=== PATIENT | female | born 1985 | race Caucasian/White ===

== ENCOUNTER 2018-04-09 18:20 | Emergency (ER) | payer SELFPAY ==
[2018-04-09 20:03] LABS: Basophils # (Auto) 0.1 K/mm3 (0.0-0.1); Basophils % (Auto) 0.7 % (0.0-1.8); Eosinophils # (Auto) 0.2 K/mm3 (0.0-0.4); Eosinophils % (Auto) 2.4 % (0.0-4.3); Hematocrit 44.2 % (30.3-42.9); Hemoglobin 14.9 gm/dl (10.1-14.3); Lymphocytes # (Auto) 2.4 K/mm3 (1.2-5.4); Lymphocytes % (Auto) 24.7 % (13.4-35.0); Mean Corpuscular HGB Conc 34 % (30-34); Mean Corpuscular Hemoglobin 31 pg (28-32); Mean Corpuscular Volume 92 fl (79-97); Monocytes # (Auto) 0.6 K/mm3 (0.0-0.8); Monocytes % (Auto) 6.6 % (0.0-7.3); Platelet Count 263 K/mm3 (140-440); Red Blood Count 4.82 M/mm3 (3.65-5.03); Red Cell Distribution Width 13.4 % (13.2-15.2)
[2018-04-09 20:16] LABS: BUN/Creatinine Ratio 11; Blood Urea Nitrogen 8 mg/dL (7-17); Calcium 9.1 mg/dL (8.4-10.2); Hemolysis Index 17
[2018-04-09] MEDS ORDERED: ANTIVERT PO ONE (23:22)
[2018-04-09] MEDS ORDERED: ZOFRAN ODT PO ONE (23:22)
--- NOTE | 2018-04-09 23:28 | Emergency Department Report ---
ED Dizziness HPI - General Chief Complaint: Dizziness Stated Complaint: DIZZNESS Time Seen by Provider: 04/09/18 23:13 Source: patient Mode of arrival: Ambulatory Limitations: Language Barrier - History of Present Illness Initial Comments: 33-year-old female with past medical history of kidney stones presents and previous appendectomy presents to the hospital complaining of intermittent dizziness described as a spinning sensation for the past 3 days. Symptoms are intermittent and worse with head movement to the side, looking up or down, or other postural changes. Dizziness is associated with nausea but she denies vomiting. When she tries to read and dizziness occurs her vision is blurry and she has trouble focusing. Patient states she is supposed to wear reading glasses but she does not. Patient has chronic intermittent loose stools after by mouth intake but denies aristeo diarrhea. Patient has a mild headache this evening but thinks is secondary to not eating all day. She denies fever, unsteady gait, focal numbness, focal weakness, chest pain, shortness of breath, decreased hearing or tinnitus. - Related Data Home Medications Medication Instructions Recorded Confirmed Last Taken Ferrous Sulfate [Feosol] 325 mg PO QDAY 01/28/16 01/28/16 1 Week Ago ~01/21/16 valACYclovir [Valtrex] 500 mg PO QDAY 01/28/16 01/28/16 01/26/16 Previous Rx's Medication Instructions Recorded Last Taken Type Ibuprofen [Motrin 800 MG tab] 800 mg PO Q8HR PRN #30 tablet 01/28/16 Unknown Rx oxyCODONE /ACETAMINOPHEN [Percocet 2 tab PO Q4HR PRN #30 tablet 01/28/16 Unknown Rx 5/325] Ferrous Sulfate [Feosol 325 MG tab] 325 mg PO BID #60 tablet 01/29/16 Unknown Rx Meclizine [Antivert] 25 mg PO TID PRN #30 tablet 04/09/18 Unknown Rx Ondansetron [Zofran Odt] 4 mg PO Q8HR PRN #20 tab.rapdis 04/09/18 Unknown Rx Allergies Allergy/AdvReac Type Severity Reaction Status Date / Time ciprofloxacin [From Cipro] Allergy Rash Verified 08/28/15 21:11 ciprofloxacin HCl Allergy Rash Verified 08/28/15 21:11 [From Cipro] ED Review of Systems ROS: Stated complaint: DIZZNESS Other details as noted in HPI Comment: All other systems reviewed and negative ED Past Medical Hx - Past Medical History Previous Medical History?: Yes Hx Hypertension: No Hx Congestive Heart Failure: No Hx Diabetes: No Hx Deep Vein Thrombosis: No Hx Renal Disease: (kidney stones 2009) Hx Sickle Cell Disease: No Hx Seizures: No Hx Asthma: No Hx COPD: No Hx HIV: No - Surgical History Past Surgical History?: Yes Hx Appendectomy: Yes - Social History Smoking Status: Never Smoker - Medications Home Medications: Home Medications Medication Instructions Recorded Confirmed Last Taken Type Ferrous Sulfate [Feosol] 325 mg PO QDAY 01/28/16 01/28/16 1 Week Ago History ~01/21/16 Ibuprofen [Motrin 800 MG tab] 800 mg PO Q8HR PRN #30 tablet 01/28/16 Unknown Rx oxyCODONE /ACETAMINOPHEN [Percocet 2 tab PO Q4HR PRN #30 tablet 01/28/16 Unknown Rx 5/325] valACYclovir [Valtrex] 500 mg PO QDAY 01/28/16 01/28/16 01/26/16 History Ferrous Sulfate [Feosol 325 MG tab] 325 mg PO BID #60 tablet 01/29/16 Unknown Rx Meclizine [Antivert] 25 mg PO TID PRN #30 tablet 04/09/18 Unknown Rx Ondansetron [Zofran Odt] 4 mg PO Q8HR PRN #20 tab.rapdis 04/09/18 Unknown Rx ED Physical Exam - General Limitations: Language Barrier - Other Other exam information: General: No limitations, patient is alert in no acute distress Head exam: Atraumatic, normocephalic Eyes exam: Normal appearance, pupils equal reactive to light, extraocular movements intact. Patient dizzy with lateral gaze left greater than right. No significant nystagmus. VA Bilateral 20/20 L 20/25, R 20/25 ENT: Moist mucous membrane, normal oropharynx, bilateral TMs normal Neck exam: Normal inspection, full range of motion, no meningismus nontender Respiratory exam: Clear to auscultation bilateral, no wheezes, rales, crackles Cardiovascular: Normal rate and rhythm, normal heart sounds Abdomen: Soft, nondistended, and nontender, with normal bowel sounds, no rebound, or guarding Extremity: Full range of motion normal inspection no deformity Back: Normal Inspection, full range of motion, no tenderness Neurologic: Alert, oriented x3, cranial nerves intact, no motor or sensory deficit. NIHSS = 0 Psychiatric: normal affect, normal mood Skin: Warm, dry, intact ED Course Vital Signs 04/09/18 04/09/18 18:36 23:45 Temperature 98.3 F 98.2 F Pulse Rate 63 63 Respiratory 18 20 Rate Blood Pressure 113/74 Blood Pressure 113/66 [Left] O2 Sat by Pulse 96 100 Oximetry - Reevaluation(s) Reevaluation #1: 04/09/18 23:26 orthostatics, visual acuity, and meclizine administration pending ED Medical Decision Making - Lab Data Result diagrams: 04/09/18 19:45 04/09/18 19:45 Lab Results 04/09/18 04/09/18 04/09/18 Range/Units 19:45 19:45 19:45 WBC 9.7 (4.5-11.0) K/mm3 RBC 4.82 (3.65-5.03) M/mm3 Hgb 14.9 H (10.1-14.3) gm/dl Hct 44.2 H (30.3-42.9) % MCV 92 (79-97) fl MCH 31 (28-32) pg MCHC 34 (30-34) % RDW 13.4 (13.2-15.2) % Plt Count 263 (140-440) K/mm3 Lymph % (Auto) 24.7 (13.4-35.0) % Pratt % (Auto) 6.6 (0.0-7.3) % Eos % (Auto) 2.4 (0.0-4.3) % Baso % (Auto) 0.7 (0.0-1.8) % Lymph # 2.4 (1.2-5.4) K/mm3 Pratt # 0.6 (0.0-0.8) K/mm3 Eos # 0.2 (0.0-0.4) K/mm3 Baso # 0.1 (0.0-0.1) K/mm3 Seg Neutrophils % 65.6 (40.0-70.0) % Seg Neutrophils # 6.4 (1.8-7.7) K/mm3 Sodium 139 (137-145) mmol/L Potassium 4.0 (3.6-5.0) mmol/L Chloride 102.8 (98-107) mmol/L Carbon Dioxide 24 (22-30) mmol/L Anion Gap 16 mmol/L BUN 8 (7-17) mg/dL Creatinine 0.7 (0.7-1.2) mg/dL Estimated GFR > 60 ml/min BUN/Creatinine Ratio 11 % Glucose 96 (65-100) mg/dL Calcium 9.1 (8.4-10.2) mg/dL Magnesium (1.7-2.3) mg/dL Total Bilirubin (0.1-1.2) mg/dL Direct Bilirubin (0-0.2) mg/dL Indirect Bilirubin mg/dL AST (5-40) units/L ALT (7-56) units/L Alkaline Phosphatase (35-129) units/L Total Protein (6.3-8.2) g/dL Albumin (3.9-5) g/dL Albumin/Globulin Ratio % HCG, Qual Negative (Negative) 04/09/18 Range/Units 23:15 WBC (4.5-11.0) K/mm3 RBC (3.65-5.03) M/mm3 Hgb (10.1-14.3) gm/dl Hct (30.3-42.9) % MCV (79-97) fl MCH (28-32) pg MCHC (30-34) % RDW (13.2-15.2) % Plt Count (140-440) K/mm3 Lymph % (Auto) (13.4-35.0) % Pratt % (Auto) (0.0-7.3) % Eos % (Auto) (0.0-4.3) % Baso % (Auto) (0.0-1.8) % Lymph # (1.2-5.4) K/mm3 Pratt # (0.0-0.8) K/mm3 Eos # (0.0-0.4) K/mm3 Baso # (0.0-0.1) K/mm3 Seg Neutrophils % (40.0-70.0) % Seg Neutrophils # (1.8-7.7) K/mm3 Sodium (137-145) mmol/L Potassium (3.6-5.0) mmol/L Chloride (98-107) mmol/L Carbon Dioxide (22-30) mmol/L Anion Gap mmol/L BUN (7-17) mg/dL Creatinine (0.7-1.2) mg/dL Estimated GFR ml/min BUN/Creatinine Ratio % Glucose (65-100) mg/dL Calcium (8.4-10.2) mg/dL Magnesium 2.20 (1.7-2.3) mg/dL Total Bilirubin 0.30 (0.1-1.2) mg/dL Direct Bilirubin < 0.2 (0-0.2) mg/dL Indirect Bilirubin 0.1 mg/dL AST 20 (5-40) units/L ALT 19 (7-56) units/L Alkaline Phosphatase 89 (35-129) units/L Total Protein 7.0 (6.3-8.2) g/dL Albumin 4.2 (3.9-5) g/dL Albumin/Globulin Ratio 1.5 % HCG, Qual (Negative) - EKG Data -: EKG Interpreted by [facility] EKG shows normal: sinus rhythm, axis (qrs 20), QRS complexes (qrsd 90), ST-T waves (no lat t wave flat, no stemi) Rate: normal (74) - EKG Data When compared to previous EKG there are: previous EKG unavailable - Medical Decision Making vertigo sx labs normal orthostatics neg visual acuity normal improved with meclizine/zofran ENT and PMD f/u Encouraged - Differential Diagnosis vertigo, anemia and dehydration Critical Care Time: No Critical care attestation.: If time is entered above; I have spent that time in minutes in the direct care of this critically ill patient, excluding procedure time. ED Disposition Clinical Impression: Vertigo Disposition: DC-01 TO HOME OR SELFCARE Is pt being admited?: No Does the pt Need Aspirin: No Condition: Stable Instructions: Vertigo (ED) Additional Instructions: Follow-up with the primary care doctor and an ENT doctor. Take the medication as prescribed. Return if symptoms worsen as indicated by the discharge instructions. Prescriptions: Meclizine [Antivert] 25 mg PO TID PRN #30 tablet PRN Reason: Vertigo Ondansetron [Zofran Odt] 4 mg PO Q8HR PRN #20 tab.rapdis PRN Reason: Nausea And Vomiting Referrals: PRIMARY CAREMD [Primary Care Provider] - 3-5 Days KEMAL STOKES MD [Staff Physician] - 3-5 Days (ENT) MICHAEL WHITTAKER MD [Staff Physician] - 3-5 Days (ENT) Time of Disposition: 01:35 - Assessment Assessment Interval: Baseline - Level of Consciousness 1a. Level of Consciousness: alert - LOC Questions 1b. LOC Questions: answers correctly - LOC Command 1c. LOC Commands: performs tasks correctly - Best Gaze 2. Best Gaze: normal - Visual 3. Visual: no visual loss - Facial Palsy 4. Facial Palsy: normal symmetrical movement - Motor Arm 5b. Motor Arm Right: no drift 5a. Motor Arm Left: amputation - Motor Leg 6a. Motor Leg Left: no drift 6b. Motor Leg Right: no drift - Limb Ataxia 7. Limb Ataxia: absent - Sensory 8. Sensory: normal - Best Language 9. Best Language: no aphasia - Dysarthria 10. Dysarthria: normal - Extinction and Inattention 11. Extinction/Inattention: no abnormality
[2018-04-09 23:34] LABS: Alanine Aminotransferase 19 units/L (7-56); Albumin 4.2 g/dL (3.9-5)
[2018-04-09 23:35] LABS: Bilirubin,Direct < 0.2 mg/dL (0-0.2)
[2018-04-10 02:12] VITALS: BP 108/68
== END 2018-04-10 02:14 | disposition home or self-care (01) ==
LOC: ED 18:20
DX: R42 Dizziness and giddiness (principal); Z90.49 Acquired absence of other specified parts of digestive tract; Z88.1 Allergy status to other antibiotic agents
CPT/HCPCS: 36415; 80048; 80074; 83735; 84703; 85025; 93005; 93010; Q0162

== ENCOUNTER 2018-04-13 00:22 | Emergency (ER) | payer SELFPAY ==
[2018-04-13 04:38] LABS: HCG Qualitative,Urine Negative (Negative)
--- NOTE | 2018-04-13 04:56 | XRay Report ---
FINAL REPORT EXAM: XR FOREARM RT HISTORY: Laceration/ foreign body COMPARISONS: None. FINDINGS: AP and lateral views right forearm No radiodense foreign body, bone lesion, periosteal reaction, or fracture. No deformity or gross malalignment. Mild dorsal forearm soft tissue irregularity with overlying bandaging material is compatible with reported laceration. IMPRESSION: No radiodense foreign body or fracture.
[2018-04-13] MEDS ORDERED: MOTRIN PO ONE (05:54)
[2018-04-13] MEDS ORDERED: BOOSTRIX IM ONE ×2 (05:55→05:56)
[2018-04-13] MEDS ORDERED: HYDROGEN PEROXIDE ONE (05:56)
--- NOTE | 2018-04-13 06:32 | Emergency Department Report ---
ED Laceration HPI - HPI Chief Complaint: Wound/Laceration Stated Complaint: LACERATION TO RIGHT FOREARM Time Seen by Provider: 04/13/18 05:54 Other History: 33-year-old female comes in reporting a laceration to the right forearm approximately 8 PM on Sunday night. Patient reports she fell on a clock and cut from the face of the clot. Patient also reports that she put [place] antibiotic medication that was in a capsule she poured it on to her wound. Patient has an allergy to Cipro currently takes no medications on a daily basis has a past medical history of kidney stones and had her appendix taken out. ED Review of Systems ROS: Stated complaint: LACERATION TO RIGHT FOREARM Other details as noted in HPI Comment: All other systems reviewed and negative Skin: other (cut to right forearm) ED Past Medical Hx - Past Medical History Previous Medical History?: Yes Hx Hypertension: No Hx Congestive Heart Failure: No Hx Diabetes: No Hx Deep Vein Thrombosis: No Hx Renal Disease: (kidney stones 2009) Hx Sickle Cell Disease: No Hx Seizures: No Hx Kidney Stones: Yes Hx Asthma: No Hx COPD: No Hx HIV: No - Surgical History Hx Appendectomy: Yes - Social History Smoking Status: Never Smoker Substance Use Type: None - Medications Home Medications: Home Medications Medication Instructions Recorded Confirmed Last Taken Type Ferrous Sulfate [Feosol] 325 mg PO QDAY 01/28/16 01/28/16 1 Week Ago History ~01/21/16 oxyCODONE /ACETAMINOPHEN [Percocet 2 tab PO Q4HR PRN #30 tablet 01/28/16 Unknown Rx 5/325] valACYclovir [Valtrex] 500 mg PO QDAY 01/28/16 01/28/16 01/26/16 History Ferrous Sulfate [Feosol 325 MG tab] 325 mg PO BID #60 tablet 01/29/16 Unknown Rx Meclizine [Antivert] 25 mg PO TID PRN #30 tablet 04/09/18 Unknown Rx Ondansetron [Zofran Odt] 4 mg PO Q8HR PRN #20 tab.rapdis 04/09/18 Unknown Rx Cephalexin [Keflex] 500 mg PO BID #14 capsule 04/13/18 Unknown Rx Ibuprofen [Motrin 800 MG tab] 800 mg PO Q8HR PRN #30 tablet 04/13/18 Unknown Rx Laceration Physical Exam - Exam General: Vital signs noted. No distress. Alert and acting appropriately. It appears that the wound has started to heal with the antibiotics substance that the patient had placed on the wound. There is no surrounding erythematous mild tenderness to palpate non-edematous. Scab is starting to form. No discharge appreciated. Wound Length (cm): 2 Laceration Exam: Yes Normal Distal CMS, No Foreign Body, No Exposed Tendon, Vessel, or Nerve, No Tendon Injury ED Course Vital Signs 04/13/18 04/13/18 00:20 02:13 Temperature 98.8 F 98.8 F Pulse Rate 89 88 Respiratory 18 16 Rate Blood Pressure 122/86 122/86 O2 Sat by Pulse 95 98 Oximetry ED Medical Decision Making - Radiology Data Radiology results: report reviewed, image reviewed FINAL REPORT EXAM: XR FOREARM RT HISTORY: Laceration/ foreign body COMPARISONS: None. FINDINGS: AP and lateral views right forearm No radiodense foreign body, bone lesion, periosteal reaction, or fracture. No deformity or gross malalignment. Mild dorsal forearm soft tissue irregularity with overlying bandaging material is compatible with reported laceration. IMPRESSION: No radiodense foreign body or fracture. Transcribed By: MB Dictated By: MARIBELL NAIK MD Electronically Authenticated By: MARIBELL NAIK MD Signed Date/Time: 04/13/18 489 - Medical Decision Making Patient has been evaluated by this provider fast track. Since patient is placed that antibiotic pill substance on top of the wound were not able to get the substance off to take a better look at the wound. It appears that the wound has started to heal with the antibiotics substance that the patient had placed on the wound. There is no surrounding erythematous mild tenderness to palpate non-edematous. Scab is starting to form. No discharge appreciated. We'll place patient on antibiotics Keflex 500 mg twice a day for 7 days. Patient is to follow-up with her primary care provider symptoms persists or gets worse. Critical care attestation.: If time is entered above; I have spent that time in minutes in the direct care of this critically ill patient, excluding procedure time. ED Disposition Clinical Impression: Laceration of forearm Qualifiers: Encounter type: initial encounter Laterality: right Qualified Code(s): S51.811A - Laceration without foreign body of right forearm, initial encounter Disposition: - TO HOME OR SELFCARE Is pt being admited?: No Does the pt Need Aspirin: No Condition: Stable Additional Instructions: Complete antibiotics as prescribed. Pain medication as needed. Follow-up with the primary care provider in the next 5-7 days. Return sooner if there is any signs of infection such as swelling redness purulent discharge. Complete los antibiticos segn lo prescrito. Medicamento para el dolor segn sea necesario Evangelina un seguimiento con el proveedor de atencin primaria en los prximos 5-7 oviedo. Regrese antes si hay algn signo de infeccin, mata hinchazn , enrojecimiento, secrecin purulenta. Prescriptions: Cephalexin [Keflex] 500 mg PO BID #14 capsule Ibuprofen [Motrin 800 MG tab] 800 mg PO Q8HR PRN #30 tablet PRN Reason: Mild Pain Referrals: PRIMARY CARE,MD [Primary Care Provider] - 3-5 Days Forms: Work/School Release Form(ED), Accompanied Note Print Language: DIVEHI
[2018-04-13 07:13] VITALS: BP 120/86
== END 2018-04-13 07:13 | disposition home or self-care (01) ==
LOC: ED 00:22
DX: S51.811A Laceration without foreign body of right forearm, initial encounter (principal); Z87.442 Personal history of urinary calculi; Z90.89 Acquired absence of other organs; Z88.1 Allergy status to other antibiotic agents; W18.30XA Fall on same level, unspecified, initial encounter; Y93.89 Activity, other specified; Y92.89 Other specified places as the place of occurrence of the external cause; Y99.8 Other external cause status
CPT/HCPCS: 81025; 90471; 90715; 99284

== ENCOUNTER 2020-04-27 13:08 | Observation (INO) | payer SELFPAY ==
[2020-04-27] MEDS ORDERED: FAMOTIDINE 20 MG/2 ML INJ IV ONE (13:40)
[2020-04-27] MEDS ORDERED: methylPREDNISolone Sod Succinate 125 MG/2 ML INJ IV ONE (13:40)
--- NOTE | 2020-04-27 13:48 | Emergency Department Report ---
HPI - General Chief Complaint: Allergic Reaction Time Seen by Provider: 04/27/20 13:31 - HPI HPI: Room 4 The patient is a 35-year-old female present with a chief complaint of allergic reaction. The patient had started taking Bactrim for a UTI when she developed diffuse pruritus. The patient came to this ED yesterday and was treated for an allergic reaction. The patient is being sent to L&D but instead the patient went home and called her [facility] [employer]. The patient states she was doing well until this afternoon when she slept through her schedule time to take Benadryl. Patient states she awakened itching all over and noticed swelling to her upper l ip and felt as though her throat was swelling. Patient states she has shortness of breath. Patient took a Benadryl and came to the ED. Patient states he now feels like her lip swelling has improved dramatically and her throat swelling is decreasing. Patient states she feels like she is improving. ED Past Medical Hx - Past Medical History Previous Medical History?: Yes Hx Renal Disease: Yes (RECURRENT UTIs SINCE 12/2019, KIDNEY STONES) Hx Kidney Stones: Yes - Surgical History Past Surgical History?: Yes Hx Appendectomy: Yes - Family History Family history: no significant - Social History Smoking Status: Never Smoker Substance Use Type: None - Medications Home Medications: Home Medications Medication Instructions Recorded Confirmed Last Taken Type Ferrous Sulfate [Feosol] 325 mg PO QDAY 01/28/16 01/28/16 1 Week Ago History ~01/21/16 oxyCODONE /ACETAMINOPHEN [Percocet 2 tab PO Q4HR PRN #30 tablet 01/28/16 Unknown Rx 5/325] valACYclovir [Valtrex] 500 mg PO QDAY 01/28/16 01/28/16 01/26/16 History Ferrous Sulfate [Feosol 325 MG tab] 325 mg PO BID #60 tablet 01/29/16 Unknown Rx Meclizine [Antivert] 25 mg PO TID PRN #30 tablet 04/09/18 Unknown Rx Ondansetron [Zofran Odt] 4 mg PO Q8HR PRN #20 tab.rapdis 04/09/18 Unknown Rx Cephalexin [Keflex] 500 mg PO BID #14 capsule 04/13/18 Unknown Rx Ibuprofen [Motrin 800 MG tab] 800 mg PO Q8HR PRN #30 tablet 04/13/18 Unknown Rx Acetaminophen/Codeine [Tylenol 1 tab PO Q6H PRN #12 tab 03/07/20 Unknown Rx /Codeine # 3 tab] Clindamycin [Clindamycin CAP] 450 mg PO Q8HR #21 capsule 03/07/20 Unknown Rx Famotidine [Pepcid] 20 mg PO BID #6 tablet 04/27/20 Unknown Rx Nitrofurantoin [place]/M-Cryst 100 mg PO Q12HR #20 capsule 04/27/20 Unknown Rx [Macrobid CAP] diphenhydrAMINE [Benadryl CAP] 50 mg PO Q6HR #24 capsule 04/27/20 Unknown Rx predniSONE [Deltasone] 60 mg PO QDAY #9 tab 04/27/20 Unknown Rx ED Review of Systems ROS: Stated complaint: ROSALINA Other details as noted in HPI Constitutional: no symptoms reported Respiratory: shortness of breath Endocrine: no symptoms reported Skin: pruritus Physical Exam - Physical Exam Vital Signs: Vital Signs 04/27/20 13:18 Temperature 98.1 F Pulse Rate 78 Respiratory 20 Rate Blood Pressure 114/68 [Right] O2 Sat by Pulse 95 Oximetry Physical Exam: GENERAL: The patient is well-developed well-nourished female sitting on edge of bed not appearing to be in acute distress. [] HEENT: Normocephalic. Atraumatic. Extraocular motions are intact. No appreciable lip swelling seen NECK: Supple. There is no stridor CHEST/LUNGS: Clear to auscultation. There is no respiratory distress noted. HEART/CARDIOVASCULAR: Regular. There is no tachycardia. There is no gallop rub or murmur. ABDOMEN: Abdomen is gravid SKIN: There is no rash. There is no edema. There is no diaphoresis. NEURO: The patient is awake, alert, and oriented. The patient is cooperative. The patient has normal speech MUSCULOSKELETAL: There is no evidence of acute injury. ED Course Vital Signs 04/27/20 13:18 Temperature 98.1 F Pulse Rate 78 Respiratory 20 Rate Blood Pressure 114/68 [Right] O2 Sat by Pulse 95 Oximetry - Reevaluation(s) Reevaluation #1: 04/27/20 15:21 heart tones 140 bpm Reevaluation #2: 04/27/20 15:51 Patient improved after medication. - Consultations Consultation #1: 04/27/20 15:21 Case discussed with [facility] [employer] Dr. Piña-states patient does not need to be sent to L&D for observation. Patient may be discharged from the ED when work-up is complete ED Medical Decision Making - Radiology Data Radiology results: report reviewed (Lateral soft tissue neck x-ray), image reviewed (Lateral soft tissue neck x-ray) interpreted by me: Lateral soft tissue neck [id number] airway. No evidence of obstruction Findings [facility] [address] [place] [address] XRay Report Signed Patient: LYNETTE MORIN MR#: [id number] : 1985 Acct:[id number] Age/Sex: 35 / F ADM Date: 04/27/20 Loc: ED Attending Dr: Ordering Physician: JOSE CAT MD Date of Service: 04/27/20 Procedure(s): XR neck soft tissue Accession Number(s): [id number] cc: JOSE CAT MD Fluoro Time In Minutes: AP AND LATERAL VIEWS OF THE NECK INDICATION: Allergic reaction, throat swelling. COMPARISON: No relevant prior imaging study available. FINDINGS: There is no retropharyngeal/prevertebral soft tissue swelling. No cervical air way narrowing is seen. Epiglottis is within normal limits. No acute skeletal abnormality. IMPRESSION: 1. No acute findings. Signer Name: Bandar Hall MD Signed: 04/27/2020 2:48 PM Workstation Name: [id number] Transcribed By: Dictated By: Bandar Hall MD Electronically Authenticated B y: Bandar Hall MD Signed Date/Time: 04/27/201447 DD/ 46 TD/TT: - Differential Diagnosis Allergic reaction Critical care attestation.: If time is entered above; I have spent that time in minutes in the direct care of this critically ill patient, excluding procedure time. ED Disposition Clinical Impression: UTI (urinary tract infection), Allergic reaction Disposition: DC-01 TO HOME OR SELFCARE Is pt being admited?: No Does the pt Need Aspirin: No Condition: Stable Instructions: Antibiotic Medication Allergy (ED) Additional Instructions: Return to the emergency department should you develop worsening symptoms, inability to tolerate food or liquids, high fever or any other concerns Prescriptions: diphenhydrAMINE [Benadryl CAP] 50 mg PO Q6HR #24 capsule predniSONE [Deltasone] 60 mg PO QDAY #9 tab Nitrofurantoin [place]/M-Cryst [Macrobid CAP] 100 mg PO Q12HR #20 capsule Famotidine [Pepcid] 20 mg PO BID #6 tablet Referrals: PRIMARY CARE, [Primary Care Provider] - 3-5 Days Time of Disposition: 15:51
--- NOTE | 2020-04-27 14:52 | XRay Report ---
AP AND LATERAL VIEWS OF THE NECK INDICATION: Allergic reaction, throat swelling. COMPARISON: No relevant prior imaging study available. FINDINGS: There is no retropharyngeal/prevertebral soft tissue swelling. No cervical air way narrowing is seen. Epiglottis is within normal limits. No acute skeletal abnormality. IMPRESSION: 1. No acute findings. Signer Name: Bandar Hall MD Signed: 04/27/2020 2:48 PM Workstation Name: [id number]
[2020-04-27] MEDS ORDERED: diphenhydrAMINE 50 MG/ML VIAL IV ONE (15:38)
--- NOTE | 2020-04-27 17:47 | Emergency Department Report ---
Blank Doc - Documentation Documentation: After I wrote for patient's Keflex prescription nurse once again came to me and states that patient claims to be resistant to Keflex as well. I spoke to patient and obtained additional history Patient has been dealing with a UTI since December and has a history of kidney stones and is currently 28 weeks . 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 She is very familiar with the patient. As per her medical record review she states last urine culture and sensitivities were performed on February 17 and patient had resistant E. coli. It was only sensitive to Rocephin, gentamicin, tobramycin, cefepime, and trimethoprim Patient was placed on Bactrim 1 month ago and developed symptoms of hives, throat tightness, and swelling and therefore medication was discontinued Patient was placed on trimethoprim last week but stopped the medication on Sunday, April 23 due to recurrent allergy symptoms. She has been taken Benadryl as needed for the last 2 days Patient presented here both yesterday and today with symptoms of hives, throat tightness, shortness of breath, facial swelling, and today had lip swelling. She was treated with medications for allergic reaction yesterday and was discharged without medications. She represented here today and once again improved with ED treatment with plan to discharge on Bactrim, Pepcid, prednisone, and macrobid Patient continues to have recurrent intermittent allergic reactions even though she stopped the antibiotic on April 23 (and has not had any additional antibiotic). She denies any known new exposures and is not taking any other medications. It appears that patient is resistant to all possible oral antibiotic treatment for her E. coli related UTI as per culture and sensitivities from February 17 as reported by her primary [employer] providers. Patient states she has had a more recent culture and sensitivities performed end of March however, I do not have access to these results and they were not reported to me by nurse practitioner Robyn. At this time I feel that patient requires admission to the hospital. CBC, BMP ordered in addition to repeat UA with culture and sensitivities. Patient does not have unilateral flank pain suggestive of ureterolithiasis however, given history of kidney stones bilateral renal ultrasound will be ordered I also ordered infectious disease consult and will start patient on IV Rocephin. [facility] will be contacted for admission once ed orders result since patient is 28 weeks UA today is negative. It does not make sense that patient had a significant UTI on collection of urine yesterday and today it looks normal even though she has not had any antibiotics since Sunday. I ordered a repeat urine collection and urine culture even though this will likely be obtained after patient has received IV Rocephin. Patient's WBC count slightly increased compared to yesterday could be due to infection but also patient has received steroids in the ER yesterday and today which can cause leukocytosis. I discussed case with on-call [facility] doctor Dr. Piña who is agreeable to admit patient and agrees with ID consult. Ultrasound of kidney,blood cultures, recollect of UA/urine cultures pending at disposition Admission diagnosis: UTI 28-week gestation in Failed outpatient Allergic reaction to antibacterial drug this note copied and pasted to original record today
[2020-04-27 17:54] LABS: Bilirubin,Urine NEG (Negative); Blood,Urine SM (Negative); Color,Urine Straw (Yellow); Protein,Urine <15 mg/dL mg/dL (Negative); Urobilinogen,Urine < 2.0 mg/dL (<2.0)
[2020-04-27] MEDS ORDERED: cefTRIAXone/NS 1 GM/50 ML 1 GM/50 ML BAG IV ONE (18:00)
[2020-04-27 18:04] LABS: Hematocrit 33.1 % (30.3-42.9); Hemoglobin 10.6 gm/dl (10.1-14.3); Mean Corpuscular HGB Conc 32 % (30-34); Mean Corpuscular Volume 84 fl (79-97); Platelet Count 278 K/mm3 (140-440); Red Blood Count 3.95 M/mm3 (3.65-5.03); Red Cell Distribution Width 16.2 % (13.2-15.2)
[2020-04-27 18:26] LABS: Blood Urea Nitrogen 5 mg/dL (7-17); Calcium 8.4 mg/dL (8.4-10.2); Hemolysis Index 3
[2020-04-27 18:37] LABS: BUN/Creatinine Ratio 10
[2020-04-27 19:28] LABS: Basophils % (Manual) 0 % (0.0-1.8); Eosinophils % (Manual) 0 % (0.0-4.3); RBC Morphology Normal; Total Cells Counted 100
[2020-04-27 19:58] LABS: Bilirubin,Urine NEG (Negative); Blood,Urine NEG (Negative); Color,Urine Yellow (Yellow); Mucus,Urine FEW /HPF; Protein,Urine <15 mg/dL mg/dL (Negative); Urobilinogen,Urine < 2.0 mg/dL (<2.0)
[2020-04-27] MEDS ORDERED: fentaNYL 100 MCG/2 ML INJ IV PRN (20:47)
[2020-04-27] MEDS ORDERED: BUTORPHANOL 2 MG/1 ML INJ IV PRN (20:47)
[2020-04-27] MEDS ORDERED: ONDANSETRON 4 MG/2 ML INJ IV PRN (20:47)
--- NOTE | 2020-04-27 20:54 | History and Physical Report ---
History of Present Illness Date of examination: 04/27/20 Date of admission: 04/27/20 18:52 Chief complaint: allergic reaction to Bactrim and Trimethoprim History of present illness: 28 weeks treated for asymptomatic bacturia (apparently resistant e.coli) Had Bactrim and trimethoprim with acute allergic reaction including facial swelling and throat tightening Admitted for IV abx, US of kidneys and ID consult per ER PNC at outside facility Past History Past Surgical History: no surgical history - Obstetrical History : 6 Medications and Allergies Allergies Allergy/AdvReac Type Severity Reaction Status Date / Time ciprofloxacin [From Cipro] Allergy Rash Verified 04/27/20 13:18 ciprofloxacin HCl Allergy Rash Verified 04/27/20 13:18 [From Cipro] sulfamethoxazole Allergy Rash Verified 04/27/20 13:18 [From Bactrim] trimethoprim [From Bactrim] Allergy Rash Verified 04/27/20 13:18 Home Medications Medication Instructions Recorded Confirmed Last Taken Type Ferrous Sulfate [Feosol] 325 mg PO QDAY 01/28/16 01/28/16 1 Week Ago History ~01/21/16 oxyCODONE /ACETAMINOPHEN [Percocet 2 tab PO Q4HR PRN #30 tablet 01/28/16 Unknown Rx 5/325] valACYclovir [Valtrex] 500 mg PO QDAY 01/28/16 01/28/16 01/26/16 History Ferrous Sulfate [Feosol 325 MG tab] 325 mg PO BID #60 tablet 01/29/16 Unknown Rx Meclizine [Antivert] 25 mg PO TID PRN #30 tablet 04/09/18 Unknown Rx Ondansetron [Zofran Odt] 4 mg PO Q8HR PRN #20 tab.rapdis 04/09/18 Unknown Rx Cephalexin [Keflex] 500 mg PO BID #14 capsule 04/13/18 Unknown Rx Ibuprofen [Motrin 800 MG tab] 800 mg PO Q8HR PRN #30 tablet 04/13/18 Unknown Rx Acetaminophen/Codeine [Tylenol 1 tab PO Q6H PRN #12 tab 03/07/20 Unknown Rx /Codeine # 3 tab] Clindamycin [Clindamycin CAP] 450 mg PO Q8HR #21 capsule 03/07/20 Unknown Rx Famotidine [Pepcid] 20 mg PO BID #6 tablet 04/27/20 Unknown Rx cephALEXin [Keflex] 500 mg PO Q12HR #14 cap 04/27/20 Unknown Rx diphenhydrAMINE [Benadryl CAP] 50 mg PO Q6HR #24 capsule 04/27/20 Unknown Rx predniSONE [Deltasone] 60 mg PO QDAY #9 tab 04/27/20 Unknown Rx - Vital Signs Vital signs: Vital Signs Temp Pulse Resp BP Pulse Ox 98.1 F 78 20 114/68 95 04/27/20 13:18 04/27/20 13:18 04/27/20 13:18 04/27/20 13:18 04/27/20 13:18 Temp Pulse Resp BP Pulse Ox 98.1 F 87 23 100/51 95 04/27/20 13:18 04/27/20 18:48 04/27/20 18:48 04/27/20 18:48 04/27/20 18:48 Results Result Diagrams: 04/27/20 17:29 04/27/20 17:29 Abnormal lab results 04/27/20 04/27/20 04/27/20 Range/Units 17:29 17:29 19:00 WBC 16.2 H (4.5-11.0) K/mm3 MCH 27 L (28-32) pg RDW 16.2 H (13.2-15.2) % Seg Neuts % (Manual) 91.0 H (40.0-70.0) % Lymphocytes % (Manual) 6.0 L (13.4-35.0) % Seg Neutrophils # Man 14.7 H (1.8-7.7) K/mm3 Lymphocytes # (Manual) 1.0 L (1.2-5.4) K/mm3 Carbon Dioxide 18 L (22-30) mmol/L BUN 5 L (7-17) mg/dL Creatinine 0.5 L (0.6-1.2) mg/dL Glucose 113 H (65-100) mg/dL Ur Specific [place] (1.003-1.030) Urine WBC (Auto) 8.0 H (0.0-6.0) /HPF 04/27/20 Range/Units Unknown WBC (4.5-11.0) K/mm3 MCH (28-32) pg RDW (13.2-15.2) % Seg Neuts % (Manual) (40.0-70.0) % Lymphocytes % (Manual) (13.4-35.0) % Seg Neutrophils # Man (1.8-7.7) K/mm3 Lymphocytes # (Manual) (1.2-5.4) K/mm3 Carbon Dioxide (22-30) mmol/L BUN (7-17) mg/dL Creatinine (0.6-1.2) mg/dL Glucose (65-100) mg/dL Ur Specific [place] 1.002 L (1.003-1.030) Urine WBC (Auto) (0.0-6.0) /HPF All other labs normal. Assessment and Plan Allergic reaction asymptomatic bacturia Plan for 24 hour obs no abx for asymptomatic bacturia US as per ED and ID consult PRN Morphine as needed, hold benadryl NST Q shift Maternal/ well being reassuring at bedside Charbel Piña MD
[2020-04-27] MEDS ORDERED: LACTATED RINGERS 1,000 ML IV SCH (21:00)
--- NOTE | 2020-04-28 | Ultrasound Report ---
US renal BILAT INDICATION / CLINICAL INFORMATION: recurrent uti, hx of kidney stones/28 wk . COMPARISON: None available. FINDINGS: The right kidney measures 12.0 cm and the left kidney measures 11.7 cm. There is mild left-sided hydr onephrosis present. No focal abnormality is seen in the right kidney. The bladder is normal. IMPRESSION: Mild left-sided hydronephrosis which could be secondary to . Otherwise negative renal ultras ound Signer Name: J Luis Allen MD FACR Signed: 04/27/2020 11:55 PM Workstation Name: [id number]
[2020-04-28] MEDS ORDERED: dexAMETHasone 20 MG in SODIUM CHLORIDE 0.9% 50 ML IV ONE (02:14)
[2020-04-28] MEDS ORDERED: dexAMETHasone 4 MG/ML VIAL IV ONE (02:17)
[2020-04-28] MEDS ORDERED: dexAMETHasone 4 MG/ML VIAL ONE (02:18)
[2020-04-28] MEDS ORDERED: diphenhydrAMINE 50 MG/ML VIAL IV ONE (04:09)
[2020-04-28 06:33] LABS: Hematocrit 28.8 % (30.3-42.9); Hemoglobin 9.1 gm/dl (10.1-14.3); Mean Corpuscular HGB Conc 32 % (30-34); Mean Corpuscular Volume 84 fl (79-97); Platelet Count 255 K/mm3 (140-440); Red Blood Count 3.42 M/mm3 (3.65-5.03); Red Cell Distribution Width 16.2 % (13.2-15.2)
--- NOTE | 2020-04-28 10:40 | Consultation ---
History of Present Illness - Reason for Consult Consult date: 04/28/20 asymptomatic bacteriuria/28 weeks /resistant E coli Requesting physician: ASH PINON - History of Present Illness 35 years old female with history of frequent UTIs and kidney stones status post lithotripsy 2008, currently with 28 weeks, , admitted due to a reaction and throat swelling, lip swelling on trimethoprim. Patient reports that she was found to have a UTI in December 2019 while she went to her visit. She did not have any symptoms. Ever since then, patient 's urinalysis has turned positive for UTI. Patient reports she grew E. coli, and she had received different courses of antibiotics, including Macrobid, cephalexin without clearing the urinalysis. A month ago she was placed on Bactrim, and she developed hives, throat tightness, shortness of breath, facial swelling. Patient denies any dysuria, hematuria, or urgency however reports left-sided kowalski prapubic pain 4 out of 10 intermittent. ER physician documentation, after discussing with nurse practitioner at her center, last urine culture was done on 02/18/2020 reportedly multidrug-resistant E. coli, only sensitive to the ceftriaxone, gentamicin, tobramycin, cefepime and trimethoprim. She was seen in the ED recently and was discharged on Bactrim, Pepcid, prednisone and Macrobid and she continues to have skin reaction. Stop all antibiotics on 04/23/2020. There is a recent culture done on 26 March which is not available at the time of my dictation. On arrival, patient was afebrile, vital signs were stable. Initial WBC 16.2. Hemoglobin 10.6. Creatinine 0.5. Urinalysis with 8 WBCs and small leukocyte esterase. Blood culture 04/27/2020 no growth today. Ultrasound of the kidneys shows mild left hydronephrosis. Review of Systems: positive in bold print General: fever, chills, malaise Cutaneous:+hand swelling Head: headaches or injury Eyes: changes in vision, eye pain, double vision Ears: ear pain, ear discharge, ringing or hearing loss Nose: nose bleeding, stuffiness Mouth & throat: +lip swelling Neck: no pain, node enlargement/lumps, tyroid enlargement or tenderness Respiratory: SOB, cough, LEMUS, wheezing, sputum, hemoptysis, pleuritic chest pain Cardiovascular: chest pain, leg edema, cyanosis, LEMUS, orthopnea Musculoskeletal: edema, deformities, pain Gastrointestinal: +left suprapubic pain Genitourinary/Reproductive: frequent urination, dysuria, hematuria, incontinence Neurogical: seizures, headaches, weakness, paresthesias, loss of speech or vision; memory loss, vertigo, tremors, numbness Psychiatric: stable mood; excessive anxiety, sadness or moodiness Medications and Allergies Allergies Allergy/AdvReac Type Severity Reaction Status Date / Time ciprofloxacin [From Cipro] Allergy Rash Verified 04/27/20 13:18 ciprofloxacin HCl Allergy Rash Verified 04/27/20 13:18 [From Cipro] sulfamethoxazole Allergy Rash Verified 04/27/20 13:18 [From Bactrim] trimethoprim [From Bactrim] Allergy Rash Verified 04/27/20 13:18 Home Medications Medication Instructions Recorded Confirmed Last Taken Type Ferrous Sulfate [Feosol] 325 mg PO QDAY 01/28/16 04/28/20 1 Week Ago History ~01/21/16 oxyCODONE /ACETAMINOPHEN [Percocet 2 tab PO Q4HR PRN #30 tablet 01/28/16 04/28/20 Unknown Rx 5/325] valACYclovir [Valtrex] 500 mg PO QDAY 01/28/16 04/28/20 01/26/16 History Ferrous Sulfate [Feosol 325 MG tab] 325 mg PO BID #60 tablet 01/29/16 04/28/20 Unknown Rx Meclizine [Antivert] 25 mg PO TID PRN #30 tablet 04/09/18 04/28/20 Unknown Rx Ondansetron [Zofran Odt] 4 mg PO Q8HR PRN #20 tab.rapdis 04/09/18 04/28/20 Unknown Rx Cephalexin [Keflex] 500 mg PO BID #14 capsule 04/13/18 04/28/20 Unknown Rx Ibuprofen [Motrin 800 MG tab] 800 mg PO Q8HR PRN #30 tablet 04/13/18 04/28/20 Unknown Rx Acetaminophen/Codeine [Tylenol 1 tab PO Q6H PRN #12 tab 03/07/20 04/28/20 Unknown Rx /Codeine # 3 tab] Clindamycin [Clindamycin CAP] 450 mg PO Q8HR #21 capsule 03/07/20 04/28/20 Unknown Rx Famotidine [Pepcid] 20 mg PO BID #6 tablet 04/27/20 Unknown Rx cephALEXin [Keflex] 500 mg PO Q12HR #14 cap 04/27/20 Unknown Rx diphenhydrAMINE [Benadryl CAP] 50 mg PO Q6HR #24 capsule 04/27/20 Unknown Rx predniSONE [Deltasone] 60 mg PO QDAY #9 tab 04/27/20 Unknown Rx Active Meds: Active Medications Butorphanol Tartrate (Stadol) 1 mg IV Q2H PRN PRN Reason: Pain, Moderate(4-6) LABOR PAIN Fentanyl (Sublimaze) 100 mcg IV Q2H PRN PRN Reason: Pain,Severe (7-10) LABOR PAIN Last Admin: 04/27/20 23:44 Dose: 100 mcg Documented by: Lactated Ringer's (Lactated Ringers) 1,000 mls @ 125 mls/hr IV DIRECT TERESSA Last Admin: 04/27/20 22:00 Dose: 125 mls/hr Documented by: Ondansetron HCl (Zofran) 4 mg IV Q8H PRN PRN Reason: Nausea And Vomiting Physical Examination - Physical Exam Narrative exam: General appearance: Alert in NAD Eyes: anicteric sclerae, moist conjunctivae; no lid-lag; PERRLA HENT: Atraumatic; oropharynx clear with moist mucous membranes and no oral thrush; normal hard and soft palate. Lungs: CTA, with normal respiratory effort and no intercostal retractions CV: RRR no murmur Abdomen: Soft, uterus Extremities: no edema, no cyanosis Skin: No rash. Psych: Appropriate affect, alert and oriented to person, place and time. Neuro: alert and oriented x 3. Moving all extermities - Constitutional Vitals: Vital Signs Temp Pulse Resp BP Pulse Ox 97.8 F 61 20 100/57 97 04/28/20 04:48 04/28/20 04:46 04/28/20 04:48 04/28/20 04:46 04/27/20 22:23 Temperature -Last 24 Hours Temperature 97.8 F Temperature 98.9 F Temperature 98.2 F Temperature 98.1 F Results - Labs CBC & Chem 7: 04/28/20 05:33 04/27/20 17:29 Labs: Abnormal lab results 04/27/20 04/27/20 04/27/20 Range/Units 17:29 17:29 19:00 WBC 16.2 H (4.5-11.0) K/mm3 RBC (3.65-5.03) M/mm3 Hgb (10.1-14.3) gm/dl Hct (30.3-42.9) % MCH 27 L (28-32) pg RDW 16.2 H (13.2-15.2) % Seg Neuts % (Manual) 91.0 H (40.0-70.0) % Lymphocytes % (Manual) 6.0 L (13.4-35.0) % Seg Neutrophils # Man 14.7 H (1.8-7.7) K/mm3 Lymphocytes # (Manual) 1.0 L (1.2-5.4) K/mm3 Carbon Dioxide 18 L (22-30) mmol/L BUN 5 L (7-17) mg/dL Creatinine 0.5 L (0.6-1.2) mg/dL Glucose 113 H (65-100) mg/dL Ur Specific [place] (1.003-1.030) Urine WBC (Auto) 8.0 H (0.0-6.0) /HPF 04/27/20 04/28/20 Range/Units Unknown 05:33 WBC 12.8 H (4.5-11.0) K/mm3 RBC 3.42 L (3.65-5.03) M/mm3 Hgb 9.1 L (10.1-14.3) gm/dl Hct 28.8 L (30.3-42.9) % MCH 27 L (28-32) pg RDW 16.2 H (13.2-15.2) % Seg Neuts % (Manual) (40.0-70.0) % Lymphocytes % (Manual) (13.4-35.0) % Seg Neutrophils # Man (1.8-7.7) K/mm3 Lymphocytes # (Manual) (1.2-5.4) K/mm3 Carbon Dioxide (22-30) mmol/L BUN (7-17) mg/dL Creatinine (0.6-1.2) mg/dL Glucose (65-100) mg/dL Ur Specific [place] 1.002 L (1.003-1.030) Urine WBC (Auto) (0.0-6.0) /HPF Assessment and Plan Cultures: Blood culture 04/27/2020 no growth today Assessment: 35 years old female with history of frequent UTIs and kidney stones status post lithotripsy 2008, currently with 28 weeks, , admitted due to a reaction and throat swelling, lip swelling on trimethoprim: #Persistent asymptomatic bacteriuria secondary to multidrug-resistant E. coli: Up to 40% of women with asymptomatic bacteriuria develop UTI, pyelonephritis, , low birthweight, at risk for mortality. Patient with urinalysis December 2019. Patient has tried multiple oral antibiotics, including Macrobid, cephalexin, IM Rocephin, and Bactrim without improvement. Patient does have history of bilateral kidney stones status post lithotripsy 2008. She is currently asymptomatic, urinalysis shows mild pyuria with leukocyte esterase. Urine culture pending. Blood cultures so far negative. Blood shows left mild hydronephrosis. Recent urine culture done in clinic pending at the time of my dictation. Noted admission leukocytosis, likely secondary to recent prednisone treatment. #Trimethoprim/Sulfamethoxazole allergy: Likely anaphylaxis. Patient should not be rechallenged. Clinically improved. # 28 weeks Recommendations: -Left intermittent suprapubic pain per OB -Obtain clinic recent urine culture and fax to my office [phone] -Start fosfomycin 3 g p.o. x1 (single dose for asymptomatic bacteriuria secondary to multidrug-resistant E. coli -Follow with urology, patient already has an appointment on May 19, 2020 -Follow-up with the ID office in 3 weeks -Okay to discharge after fosfomycin dose Will follow. Dione Reina MD Infectious Diseases Bag Worker [facility] M [phone] O [phone]
[2020-04-28] MEDS ORDERED: FOSFOMYCIN TROMETHAMINE 3 GM PACKET PO NR (11:01)
[2020-04-28] MEDS ORDERED: diphenhydrAMINE 50 MG/ML VIAL ONE (14:55)
[2020-04-28 15:08] VITALS: BP 86/50
--- NOTE | 2020-04-28 15:57 | Event Note ---
Date: 04/28/20 spoke with pt and she notes her rash is improved with Benadryl. I spoke with ID. Will give Fosomycin. IF tolerated well, will send pt home and she will f/u with ID.
[2020-04-28] MEDS ORDERED: FOSFOMYCIN TROMETHAMINE 3 GM PACKET PO ONE (16:57)
--- NOTE | 2020-04-28 17:24 | Event Note ---
Date: 04/28/20 Pt given Abx 2 hrs ago and has tolerated it well with no issues. As a result, will send pt home.
== END 2020-04-28 18:45 | disposition home or self-care (01) ==
LOC: ED 13:08 → 3A 18:52 → LD 20:07 → UNDODISOB 04-28 09:15
PROVIDERS: ADMIT Obstetrics & Gynecology; ATTEND Obstetrics & Gynecology
DX: O99.89 Other specified diseases and conditions complicating pregnancy, childbirth and the puerperium (principal); T36.8X5A Adverse effect of other systemic antibiotics, initial encounter; T44 Poisoning by, adverse effect of and underdosing of drugs primarily affecting the autonomic nervous system; O23.43 Unspecified infection of urinary tract in pregnancy, third trimester; Z87.442 Personal history of urinary calculi; Z90.49 Acquired absence of other specified parts of digestive tract; Z88.1 Allergy status to other antibiotic agents; Z88.2 Allergy status to sulfonamides; Z88.8 Allergy status to other drugs, medicaments and biological substances; Z3A.28 28 weeks gestation of pregnancy; X58.XXXA Exposure to other specified factors, initial encounter; Y93.89 Activity, other specified; Y92.89 Other specified places as the place of occurrence of the external cause
CPT/HCPCS: 36415; 70360; 76770; 80048; 81001; 85025; 85027; 87040; 87086; 96361; 96365; 96375; 96376; 99285; G0378; J0696; J1100; J1200; J2930; J3010; J7120; 85007

== ENCOUNTER 2020-07-26 17:34 | Outpatient (CLI) | payer SELFPAY ==
[2020-07-26 18:16] VITALS: BP 129/79
--- NOTE | 2020-07-26 21:54 | Ultrasound Report ---
ULTRASOUND OBSTETRIC LIMITED ULTRASOUND BIOPHYSICAL PROFILE INDICATION / CLINICAL INFORMATION: KEV. Clinical Gestational Age (GA): 40 weeks. 5 days COMPARISON: 04/26/2020 FINDINGS: BREATHING MOVEMENT = 2 GROSS BODY MOVEMENT = 2 TONE = 2 QUALITATIVE AMNIOTIC FLUID VOLUME = 2 TOTAL BIOPHYSICAL SCORE = 8/8 HEART RATE (beats per minute): 133 AMNIOTIC FLUID INDEX (cm) = 15.9 (normal = 7-24 cm) PRESENTATION: Cephalic. ADDITIONAL FINDINGS: None. IMPRESSION: 1. Biophysical Score = 8/8 2. Normal KEV Signer Name: Holden Lopez MD Signed: 07/26/2020 9:49 PM Workstation Name: [id number]
== END 2020-07-26 20:40 | disposition home or self-care (01) ==
LOC: APU 17:34 → TRG 17:34
PROVIDERS: ATTEND Obstetrics & Gynecology
DX: O47.1 False labor at or after 37 completed weeks of gestation (principal); Z3A.40 40 weeks gestation of pregnancy
CPT/HCPCS: 76815; 76819

== ENCOUNTER 2020-07-28 15:06 | Inpatient (IN) | payer SELFPAY ==
[2020-07-28] MEDS ORDERED: LACTATED RINGERS 1,000 ML ONE (16:01)
[2020-07-28] MEDS ORDERED: OXYTOCIN DRIP 30,000 MILLIUNITS/500 ML BAG IV ONE (16:24)
[2020-07-28] MEDS ORDERED: BUTORPHANOL 2 MG/1 ML INJ IV PRN (16:51)
[2020-07-28] MEDS ORDERED: MINERAL OIL 30 ML ORAL LIQD PO PRN (16:51)
[2020-07-28] MEDS ORDERED: ePHEDrine SULFATE 50 MG/1 ML INJ IV PRN (16:51)
[2020-07-28] MEDS ORDERED: TERBUTALINE 1 MG/1 ML INJ SUB-Q PRN (16:51)
[2020-07-28] MEDS ORDERED: LACTATED RINGERS 1,000 ML IV SCH (17:00)
[2020-07-28] MEDS ORDERED: OXYTOCIN DRIP 30 UNITS/500 ML BAG IV SCH ×2 (17:00)
[2020-07-28 17:28] LABS: Hematocrit 31.7 % (30.3-42.9); Hemoglobin 9.7 gm/dl (10.1-14.3); Mean Corpuscular HGB Conc 31 % (30-34); Mean Corpuscular Volume 74 fl (79-97); Platelet Count 248 K/mm3 (140-440); Red Blood Count 4.28 M/mm3 (3.65-5.03); Red Cell Distribution Width 18.5 % (13.2-15.2)
[2020-07-28] MEDS ORDERED: LIDOCAINE (2%) 20 MG/1 ML VIAL 20 ML MDV INFILTRATI ONE ×3 (18:00→21:23)
--- NOTE | 2020-07-28 18:08 | History and Physical Report ---
History of Present Illness Date of examination: 07/28/20 Date of admission: 07/28/20 15:06 Chief complaint: Presents for postdates induction in early labor. History of present illness: Early entry to care at 9 weeks to [facility]. course complicated by AMA (35 years old) and recurrent UTI (allergic to multiple abx, refused to keep taking abx. Neg BREN 03/27/20). Past History Past Medical History: other (depression) Past Surgical History: LACQUER COATER/uterine surgery (recto-vaginal fistula repair), other (lithotripsy) LACQUER COATER History: herpes (on suppressive therapy since 06/15) Family/Genetic History: hypertension (father and mother), cancer (Prostate CA- father) Social history: no significant social history - Obstetrical History Expected Date of Delivery: 07/21/20 Actual Gestation: 41 Week(s) 0 Day(s) : 7 Para: 5 Hx # Term Pregnancies: 5 Number of Pregnancies: 0 Spontaneous Abortions: 1 Induced : 0 Number of Living Children: 5 #1 Infant Gender: Male year: 2,003 Birthweight: 3.374 kg Method of Delivery: Vaginal Gestational age at delivery: 41 Complications: none #2 Infant Gender: Male year: 2,004 Birthweight: 3.515 kg Method of Delivery: Vaginal Gestational age at delivery: 40 Complications: none #3 Infant Gender: Female year: 2,006 Birthweight: 3.402 kg Method of Delivery: Vaginal Gestational age at delivery: 40 Complications: none #4 Infant Gender: Female year: 2,012 Birthweight: 3.402 kg Method of Delivery: Vaginal Gestational age at delivery: 40 Complications: none #5 Infant Gender: Male year: 2,016 Birthweight: 3.884 kg Method of Delivery: Vaginal Gestational age at delivery: 40 Complications: none Medications and Allergies Allergies Allergy/AdvReac Type Severity Reaction Status Date / Time ciprofloxacin [From Cipro] Allergy Rash Verified 04/27/20 13:18 ciprofloxacin HCl Allergy Rash Verified 04/27/20 13:18 [From Cipro] sulfamethoxazole Allergy Rash Verified 04/27/20 13:18 [From Bactrim] trimethoprim [From Bactrim] Allergy Rash Verified 04/27/20 13:18 Home Medications Medication Instructions Recorded Confirmed Last Taken Type valACYclovir [Valtrex] 500 mg PO QDAY 01/28/16 04/28/20 01/26/16 History Active Meds: Active Medications Butorphanol Tartrate (Stadol) 2 mg IV Q2H PRN PRN Reason: Pain , Severe (7-10) Ephedrine Sulfate (Ephedrine Sulfate) 10 mg IV Q2M PRN PRN Reason: Hypotension Oxytocin/Sodium Chloride (Pitocin/Ns 30 Unit/500ml) 30 units in 500 mls @ 4 mls/hr IV TITR TERESSA; Protocol Lactated Ringer's (Lactated Ringers) 1,000 mls @ 125 mls/hr IV DIRECT TERESSA Oxytocin/Sodium Chloride (Pitocin/Ns 30 Unit/500ml) 30 units in 500 mls @ 40 mls/hr IV TITR TERESSA; Protocol Lidocaine (Xylocaine 2%) 20 ml INFILTRATI ONCE ONE Stop: 07/28/20 18:01 Mineral Oil (Mineral Oil) 30 ml PO QHS PRN PRN Reason: Constipation Terbutaline Sulfate (Brethine) 0.25 mg SUB-Q ONCE PRN PRN Reason: Hyperstimulation/Hypertonicity Review of Systems All systems: negative - Vital Signs Vital signs: Vital Signs Pulse Pulse Ox 87 98 07/28/20 15:55 07/28/20 15:55 Temp Pulse Resp BP Pulse Ox 98.8 F 81 122/80 99 07/28/20 15:59 07/28/20 17:45 07/28/20 17:29 07/28/20 17:45 - Physical Exam Breasts: Positive: normal Cardiovascular: Regular rate Lungs: Positive: Normal air movement Abdomen: Positive: normal appearance, soft Genitourinary (Female): Positive: normal external genitalia, normal perenium Vagina: Positive: normal moisture Uterus: Positive: enlarged Anus/Rectum: Positive: normal perianal skin Extremities: Positive: normal - Obstetrical FHR: category 1 Uterine Contraction Monitor Mode: External Cervical Dilatation: 6 (Moderate amt of clear fluid upon AROM at 1800) Cervical Effacement Percentage: 70 station: -2 Uterine Contraction Frequency (min): 2-3 Uterine Contraction Duration: 60 seconds Uterine Contraction Pattern: Regular Uterine Tone Measurement Phase: Resting Uterine Contraction Intensity: Mild Results Result Diagrams: 07/28/20 16:08 Abnormal lab results 07/28/20 Range/Units 16:08 WBC 11.4 H (4.5-11.0) K/mm3 Hgb 9.7 L (10.1-14.3) gm/dl MCV 74 L (79-97) fl MCH 23 L (28-32) pg RDW 18.5 H (13.2-15.2) % All other labs normal. Assessment and Plan A: IUP at 41 weeks Category I tracing Active Labor AMA GBS Negative P: Admit to L&D per routine orders Pitocin Augmentation AROM
[2020-07-28] MEDS ORDERED: fentaNYL 100 MCG/2 ML INJ ONE (20:34)
[2020-07-28] MEDS ORDERED: WITCH HAZEL/ GLYCERIN PAD TP PRN (21:28)
[2020-07-28] MEDS ORDERED: PROMETHAZINE 25 MG RECT SUPP PR PRN (21:28)
[2020-07-28] MEDS ORDERED: LANOLIN/ZINC/DIMETHICONE (LANSINOH) 7 GM TP PRN (21:28)
[2020-07-28] MEDS ORDERED: BENZOCAINE/MENTHOL 20/0.5% TOP SPRAY 56 GM TP PRN (21:28)
[2020-07-28] MEDS ORDERED: HYDROcodone/ACETAMINOPHEN 5-325 MG TAB PO PRN (21:28)
[2020-07-28] MEDS ORDERED: diphenhydrAMINE 25 MG CAP PO PRN (21:28)
--- NOTE | 2020-07-28 21:34 | Procedure Note ---
OB Delivery Note - Delivery Date of Delivery: 07/28/20 (2102) Surgeon: TAMMIE DANIELS Estimated blood loss: 100cc - Vaginal Delivery presentation: vertex Delivery position: OA Intrapartum events: none Delivery induction: oxytocin Delivery augmentation: rupture of membranes Delivery monitor: external FHT, external uterine Route of delivery: Delivery placenta: spontaneous Delivery cord: 3 umbilical vessels Episiotomy: none Delivery laceration: none Anesthesia: none Delivery comments: of a live 9'10 female with Apgars of 8 and 9 over an intact perineum under IV pain control at 2102 on 07/28/2020. Infant placed skin to skin on maternal abd/chest. Delayed cord clamping. Cord double clamped and cut by father of baby. Spontaneous delivery of a complete and intact placenta with Ha side presenting at 2113. Cord blood collected. Fundus is firm and midline, located 4 below the U. Lochia is scant. Placenta to be discarded. - Infant A at 1 minute: 8 at 5 minutes: 9 Gender: Female (9'10)
[2020-07-28] MEDS ORDERED: HYDROCORTISONE 25 MG RECTAL SUPP PR SCH (22:00)
[2020-07-28] MEDS: IBUPROFEN 600 MG TAB PO SCH (23:36)
[2020-07-29] MEDS ORDERED: PRENATAL VIT27-FE FUMARATE-FOLIC ACID VIT TAB PO SCH (10:00)
[2020-07-29] MEDS: FERROUS SULFATE 325 MG TAB PO SCH ×2 (10:29→22:49)
[2020-07-29] MEDS: IBUPROFEN 600 MG TAB PO SCH ×2 (12:44→18:44)
[2020-07-29 17:52] LABS: Hematocrit 26.8 % (30.3-42.9); Hemoglobin 8.3 gm/dl (10.1-14.3)
--- NOTE | 2020-07-29 19:34 | Progress Note ---
Assessment and Plan A: S/P Anemia p: Continue monitoring Ferrous sulfate BID D/C home tomm if stable - Patient Problems (1) Anemia Current Visit: Yes Status: Acute Subjective - Subjective Date of service: 07/29/20 Principal diagnosis: Patient reports: appetite normal, voiding normally, pain well controlled, ambulating normally Garita: doing well, bottle feeding Objective - Vital Signs Latest vital signs: Vital Signs Temp Pulse Resp BP BP Pulse Ox 07/29/20 16:12 98.3 F 70 18 121/80 98 07/29/20 12:15 98.7 F 75 18 118/60 94 07/29/20 08:05 98.0 F 72 18 108/58 97 07/29/20 05:12 98.6 F 69 18 124/78 07/29/20 00:13 98.9 F 73 20 115/63 97 07/28/20 23:36 18 07/28/20 21:59 80 114/62 07/28/20 21:30 90 117/61 07/28/20 21:18 86 136/63 07/28/20 21:02 105 H 99 07/28/20 21:00 91 H 137/64 07/28/20 20:57 103 H 96 07/28/20 20:56 55 L 87 07/28/20 20:52 88 99 07/28/20 20:47 83 97 07/28/20 20:42 81 99 07/28/20 20:38 18 07/28/20 20:37 91 H 100 07/28/20 20:32 104 H 98 07/28/20 20:31 89 139/77 07/28/20 20:27 89 99 07/28/20 20:22 87 98 07/28/20 20:21 60 78 L 07/28/20 20:17 88 79 L 07/28/20 20:15 87 90 07/28/20 20:12 90 98 07/28/20 20:07 82 97 07/28/20 20:02 86 99 07/28/20 20:00 77 147/94 07/28/20 19:57 77 97 07/28/20 19:53 77 82 L 07/28/20 19:52 82 98 07/28/20 19:49 78 132/82 07/28/20 19:47 78 100 07/28/20 19:42 82 98 07/28/20 19:37 98 H 99 07/28/20 19:32 81 99 Intake and Output 07/29/20 07/29/20 07/29/20 06:59 14:59 22:59 Other: # Voids Void 2 2 - Exam Breasts: Present: normal Abdomen: Present: normal appearance, soft, normal bowel sounds Vulva: both: normal Uterus: Present: normal, firm, fundal height below umbilicus Extremities: Present: normal - Labs Labs: Abnormal lab results 07/29/20 Range/Units 16:50 Hgb 8.3 L (10.1-14.3) gm/dl Hct 26.8 L (30.3-42.9) %
--- NOTE | 2020-07-29 19:44 | Discharge Summary ---
Providers - Providers Date of Admission: 07/28/20 15:06 Date of discharge: 07/30/20 Attending physician: MALIK VILLANUEVA JR, MD Primary care physician: MALIK VILLANUEVA JR, MD Hospitalization Reason for admission: induction of labor Delivery: Episiotomy: none Laceration: none Other procedures: none complications: none Discharge diagnosis: IUP at term delivered [place] baby: male Hospital course: Pt was admitted for an IOL. She had a w/o pp complications and was d/cd home in stable condition. See H&P, delivery summary, and pp notes. Condition at discharge: Stable Disposition: DC-01 TO HOME OR SELFCARE - Discharge Diagnoses (1) Anemia Status: Acute Plan - Discharge Medications Prescriptions: Ibuprofen [Motrin 600 MG tab] 600 mg PO Q6HR #30 tablet - Provider Discharge Summary Additional instructions: [] Smoking cessation referral if applicable(refer to patient education folder for contact #) [] Refer to [facility] Booklet Call your doctor immediately for: * Fever > 100.5 * Heavy vaginal bleeding ( >1 pad per hour) * Severe persistent headache * Shortness of breath * Reddened, hot, painful area to leg or breast * Drainage or odor from incision. * Keep incision clean and dry at all times and follow doctor's instructions regarding bathing/showering - Follow up plan Follow up: MALIK VILLANUEVA JR, MD [Primary Care Provider] - 6 Weeks
[2020-07-30] MEDS ORDERED: ACETAMINOPHEN 325 MG TAB PO NR (06:28)
[2020-07-30] MEDS ORDERED: SODIUM CHLORIDE 0.9% 1000 ML 1,000 ML ONE (13:45)
[2020-07-30] MEDS: AMPICILLIN/NS 2 GM/100 ML 2 GM/100 ML BAG IV SCH ×2 (13:57→20:59)
[2020-07-30] MEDS ORDERED: GENTAMICIN/NS 80 MG/100 ML 100 ML IV SCH (14:00)
[2020-07-30] MEDS ORDERED: ACETAMINOPHEN 325 MG TAB PO ONE ×2 (14:04→18:00)
[2020-07-30] MEDS: GENTAMICIN/NS 100 MG/100 ML 100 MG/100 ML BAG IV SCH ×2 (15:00→23:17)
--- NOTE | 2020-07-30 20:03 | XRay Report ---
XR chest 1V ap INDICATION / CLINICAL INFORMATION: fever, chills COMPARISON: None available. FINDINGS: SUPPORT DEVICES: None. HEART / MEDIASTINUM: No significant abnormality. LUNGS / PLEURA: Lungs are clear. Costophrenic sulci are sharp. No pneumothorax. ADDITIONAL FINDINGS: No significant additional findings. IMPRESSION: 1. No acute findings. Signer Name: Elmer Marvin MD Signed: 07/30/2020 7:59 PM Workstation Name: [id number]
--- NOTE | 2020-07-30 20:30 | Event Note ---
Date: 07/30/20 Assumed care of patient. Patient has fever and chills. 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 Patient denies headache, dizziness, chest pain, shortness of breath, cough, nasal drainage, malaise, abdominal pain, flank pain, leg pain, breast pain, foul smelling discharge, or heavy bleeding. CBC, CMP, urinalysis, urine culture, flu swab, coronavirus test, and chest x-ray ordered. Patient was evaluated by CNM earlier today and had blood cultures and IV amp and gent given. Patient has received Tylenol and her temp has come down to 99.7 from 101.3.
[2020-07-30 20:54] LABS: Basophils % (Auto) 0.2 % (0.0-1.8); Eosinophils % (Auto) 0.1 % (0.0-4.3); Hematocrit 28.9 % (30.3-42.9); Lymphocytes # (Auto) 1.5 K/mm3 (1.2-5.4); Lymphocytes % (Auto) 10.6 % (13.4-35.0); Mean Corpuscular HGB Conc 31 % (30-34); Mean Corpuscular Volume 75 fl (79-97); Monocytes # (Auto) 0.9 K/mm3 (0.0-0.8); Monocytes % (Auto) 6.5 % (0.0-7.3); Platelet Count 221 K/mm3 (140-440); Red Blood Count 3.87 M/mm3 (3.65-5.03); Red Cell Distribution Width 18.7 % (13.2-15.2)
[2020-07-30] MEDS: IBUPROFEN 600 MG TAB PO PRN (20:56)
[2020-07-30 21:03] LABS: Alanine Aminotransferase 10 units/L (7-56); Albumin 3.1 g/dL (3.9-5); Blood Urea Nitrogen 6 mg/dL (7-17); Calcium 8.5 mg/dL (8.4-10.2); Hemolysis Index 0
[2020-07-30 21:10] LABS: BUN/Creatinine Ratio 9
[2020-07-31 00:10] LABS: Bilirubin,Urine NEG (Negative); Blood,Urine LG (Negative); Color,Urine Red (Yellow); RBC,Urine > 182.0 /HPF (0.0-6.0); Urobilinogen,Urine < 2.0 mg/dL (<2.0)
[2020-07-31] MEDS: GENTAMICIN/NS 100 MG/100 ML 100 MG/100 ML BAG IV SCH (05:59)
[2020-07-31] MEDS: AMPICILLIN/NS 2 GM/100 ML 2 GM/100 ML BAG IV SCH ×4 (06:01→12:51)
[2020-07-31] MEDS: IBUPROFEN 600 MG TAB PO PRN ×2 (09:45→21:52)
[2020-07-31] MEDS ORDERED: LACTATED RINGERS 250 ML IV ONE (10:00)
[2020-07-31] MEDS: FERROUS SULFATE 325 MG TAB PO SCH ×2 (12:47→21:52)
[2020-07-31] MEDS: DOCUSATE SODIUM 100 MG CAP PO SCH ×2 (12:47→21:52)
[2020-07-31] MEDS: HYDROcodone/ACETAMINOPHEN 5-325 MG TAB PO PRN (12:53)
--- NOTE | 2020-07-31 13:33 | Progress Note ---
Assessment and Plan A: day 3 S/P . Fever of unknown origin. Probable UTI. Anemia. P: Rocephin 1 gram IV every 24 hours. Urine culture results pending. Iron supplementation. Obtain results of coronavirus test and flu swab. Subjective - Subjective Date of service: 07/31/20 Principal diagnosis: day 3 S/P Interval history: Feeling better. Denies fever or chills. Urine culture, blood culture, coronavirus test and flu test pending. CXR normal. Pt. denies cough or SOB. Patient reports: appetite normal, voiding normally, pain well controlled, flatus, ambulating normally, no dizzy ambulation, no nauseated : doing well Objective - Vital Signs Latest vital signs: Vital Signs Temp Pulse Resp BP BP Pulse Ox 07/31/20 07:35 98.4 F 68 20 89/46 96 07/31/20 00:05 98.2 F 98 H 20 98/56 07/30/20 20:56 16 07/30/20 17:38 99.7 F H 108 H 18 121/77 97 07/30/20 13:33 101.3 F H Intake and Output 07/30/20 07/31/20 07/31/20 23:59 07:59 15:59 Intake Total 200 580 340 Balance 200 580 340 Intake: IV 200 100 100 AMPICILLIN/NS 2 GM/100 ML 100 100 2 gm In 100 ml @ 100 mls /hr IV Q6HR [facility] Rx#: [id number] GENTAMICIN/NS 100 MG/100 100 100 ML 100 mg In 100 ml @ 200 mls/hr IV Q8HR [facility] Rx#: [id number] Oral 480 240 Other: Total, Intake Amount 240 120 # Voids Void 1 1 1 - Exam Cardiovascular: Present: Regular rate, Normal S1, Normal S2, No murmurs Lungs: Present: Clear to auscultation Abdomen: Present: normal appearance, soft, normal bowel sounds. Absent: distention, tenderness, guarding, rigidity Uterus: Present: normal, firm, fundal height below umbilicus. Absent: bogginess, tenderness Extremities: Present: edema (mild bilateral pedal edema). Absent: tenderness - Labs Labs: Abnormal lab results 07/30/20 07/30/20 07/30/20 Range/Units 20:35 20:35 23:40 WBC 14.4 H (4.5-11.0) K/mm3 Hgb 9.0 L (10.1-14.3) gm/dl Hct 28.9 L (30.3-42.9) % MCV 75 L (79-97) fl MCH 23 L (28-32) pg RDW 18.7 H (13.2-15.2) % Lymph % (Auto) 10.6 L (13.4-35.0) % [place] # (Auto) 0.9 H (0.0-0.8) K/mm3 Seg Neutrophils % 82.6 H (40.0-70.0) % Seg Neutrophils # 11.9 H (1.8-7.7) K/mm3 Carbon Dioxide 20 L (22-30) mmol/L BUN 6 L (7-17) mg/dL Alkaline Phosphatase 143 H (35-129) units/L Albumin 3.1 L (3.9-5) g/dL Urine WBC (Auto) 174.0 H (0.0-6.0) /HPF
[2020-07-31] MEDS ORDERED: SODIUM CHLORIDE 0.9% 500 ML 500 ML IV SCH (17:00)
[2020-07-31] MEDS ORDERED: SODIUM CHLORIDE 0.9% 1000 ML 250 ML IV ONE (19:30)
[2020-07-31] MEDS ORDERED: SODIUM CHLORIDE 0.9% 250ML 250 ML IV ONE (20:00)
[2020-07-31 20:40] LABS: Basophils % (Auto) 0.4 % (0.0-1.8); Eosinophils # (Auto) 0.1 K/mm3 (0.0-0.4); Eosinophils % (Auto) 0.5 % (0.0-4.3); Hematocrit 25.8 % (30.3-42.9); Hemoglobin 8.2 gm/dl (10.1-14.3); Lymphocytes # (Auto) 1.5 K/mm3 (1.2-5.4); Lymphocytes % (Auto) 14.1 % (13.4-35.0); Mean Corpuscular HGB Conc 32 % (30-34); Mean Corpuscular Volume 76 fl (79-97); Monocytes # (Auto) 0.9 K/mm3 (0.0-0.8); Monocytes % (Auto) 8.2 % (0.0-7.3); Platelet Count 217 K/mm3 (140-440); Red Blood Count 3.39 M/mm3 (3.65-5.03); Red Cell Distribution Width 18.7 % (13.2-15.2)
[2020-07-31] MEDS: cefTRIAXone/NS 1 GM/50 ML 1 GM/50 ML BAG IV SCH (21:52)
[2020-08-01] MEDS: IBUPROFEN 600 MG TAB PO PRN ×3 (05:14→18:19)
[2020-08-01] MEDS: FERROUS SULFATE 325 MG TAB PO SCH ×2 (11:05→21:52)
[2020-08-01] MEDS: DOCUSATE SODIUM 100 MG CAP PO SCH (11:06)
--- NOTE | 2020-08-01 13:51 | Event Note ---
Date: 08/01/20 s/p Dr. Prescott ID, recommends continuing Ceftriaxone for now, the patient will be evaluated tomorrow
[2020-08-01] MEDS ORDERED: SODIUM CHLORIDE 0.9% 250 ML IVPB IV ONE (13:54)
--- NOTE | 2020-08-01 13:58 | Progress Note ---
Assessment and Plan A: day 4 S/P . UTI. Sepsis. Anemia. P: Continue IV Rocephin. ID consult put in; Dr. Prescott states she will see patient tomorrow. Continue iron supplementation. Advised pt. re: warning signs to report. Consulted Dr. Vanegas re: this patient; patient managed in collaboration with MD. Informed patient re: plan of care, diagnosis of sepsis, ID doctor to see. Subjective - Subjective Date of service: 08/01/20 Principal diagnosis: day 4 S/P Interval history: Patient was started on Rocephin 1 gram IV every 24 hours yesterday. Last night blood culture X 1 showed gram negative rods. ID consult ordered (Dr. Prescott); states she will see patient tomorrow, orders to continue IV Rocephin. Most likely urinary in origin. Patient had frequent UTIs during and was often noncompliant with her antibiotics. Patient remains afebrile. Patient feels well. Reports mild bilateral lower flank pain. Patient reports: appetite normal, voiding normally, pain well controlled, flatus, ambulating normally, no nauseated Kimberly: doing well Objective - Vital Signs Latest vital signs: Vital Signs Temp Pulse Resp BP BP Pulse Ox 08/01/20 08:18 98.1 F 61 24 99/50 97 08/01/20 05:34 97.7 F 59 L 18 91/40 98 07/31/20 23:30 98.2 F 74 18 118/54 07/31/20 19:15 98.5 F 77 18 98/54 07/31/20 15:22 98.3 F 70 20 91/49 96 Intake and Output 07/31/20 08/01/20 08/01/20 23:59 07:59 15:59 Intake Total 600 240 240 Balance 600 240 240 Intake: Oral 600 240 240 Other: Total, Intake Amount 240 240 120 # Voids Void 1 1 1 - Exam Cardiovascular: Present: Regular rate, No murmurs Lungs: Present: Clear to auscultation Abdomen: Present: soft. Absent: distention, guarding, rigidity Uterus: Present: firm Extremities: Present: normal - Labs Labs: Abnormal lab results 07/31/20 07/31/20 Range/Units 14:24 19:56 RBC 3.39 L (3.65-5.03) M/mm3 Hgb 8.2 L (10.1-14.3) gm/dl Hct 25.8 L (30.3-42.9) % MCV 76 L (79-97) fl MCH 24 L (28-32) pg RDW 18.7 H (13.2-15.2) % [place] % (Auto) 8.2 H (0.0-7.3) % [place] # (Auto) 0.9 H (0.0-0.8) K/mm3 Seg Neutrophils % 76.8 H (40.0-70.0) % Seg Neutrophils # 8.4 H (1.8-7.7) K/mm3 Gentamicin Peak 1.2 L (5.0-10.0) ug/mL
[2020-08-01] MEDS: cefTRIAXone/NS 1 GM/50 ML 1 GM/50 ML BAG IV SCH (21:52)
--- NOTE | 2020-08-02 12:39 | Progress Note ---
Assessment and Plan A: Day #5 Sepsis Asymptomatic Anemia P: Follow routine orders Continue MD management of sepsis Awaiting ID consult Continue FeSO4 325mg PO BID Desires Depo prior to d/c Subjective - Subjective Date of service: 08/02/20 Principal diagnosis: day 5 S/P Patient reports: appetite normal, voiding normally, pain well controlled, flatus, bowel movement, ambulating normally, other (denies any fever, shakes or chills) : doing well, nursing well, bottle feeding (and ) Objective - Vital Signs Latest vital signs: Vital Signs Temp Pulse Resp BP Pulse Ox 08/02/20 09:01 98.0 F 66 18 118/57 97 08/02/20 00:34 98.6 F 62 18 111/56 98 08/01/20 16:35 97.9 F 64 20 112/66 98 Intake and Output 08/01/20 08/02/20 08/02/20 22:59 06:59 14:59 Intake Total 240 Balance 240 Intake: Oral 240 Other: Total, Intake Amount 240 # Voids Void 1 - Exam Breasts: Present: normal Cardiovascular: Present: Regular rate, Normal S1, Normal S2 Lungs: Present: Clear to auscultation, Normal air movement Abdomen: Present: normal appearance, soft, normal bowel sounds Uterus: Present: normal, firm, fundal height below umbilicus Extremities: Present: normal
--- NOTE | 2020-08-02 13:39 | Consultation ---
History of Present Illness - Reason for Consult Consult date: 08/02/20 Sepsis Requesting physician: NEETA GARCIA - History of Present Illness The patient is a 35-year-old female admitted to the hospital on 07/28/2020 for labor induction, underwent a vaginal delivery on 07/28/2020. She has a history of recurrent UTIs during her . She was scheduled to be discharged however on 07/30/2020, she spiked a fever. Noted to develop sepsis, started on empiric antibiotics. Infectious diseases was consulted for additional evaluation. She is currently on IV ceftriaxone. Blood cultures turn positive for gram-negative rods. Feels well now, has no complaints. Review of Systems: General: fever, chills better HEENT: no new visual disturbance Respiratory: No cough, sputum, hemoptysis or shortness of breath Cardiovascular: No chest pain, syncope Gastrointestinal: No nausea, vomiting or diarrhea Genitourinary: No dysuria or hematuria Musculoskeletal: No new or worsening neck pain or back pain Neurologic: No headaches, seizures Hematologic: No easy bruising or bleeding Endocrine: No night sweats or acute weight loss Skin: negative for rash, jaundice Psychiatric: No suicidal or homicidal ideation Past History Social history: no significant social history Medications and Allergies Allergies Allergy/AdvReac Type Severity Reaction Status Date / Time ciprofloxacin [From Cipro] Allergy Rash Verified 04/27/20 13:18 ciprofloxacin HCl Allergy Rash Verified 04/27/20 13:18 [From Cipro] sulfamethoxazole Allergy Rash Verified 04/27/20 13:18 [From Bactrim] trimethoprim [From Bactrim] Allergy Rash Verified 04/27/20 13:18 Home Medications Medication Instructions Recorded Confirmed Last Taken Type Ferrous Sulfate [Feosol 325 MG tab] 325 mg PO BID tablet 07/29/20 Unknown Rx Ibuprofen [Motrin 600 MG tab] 600 mg PO Q6HR #30 tablet 07/29/20 Unknown Rx Vit-Fe Fumar-FA [ 1 each PO QDAY tablet 07/29/20 Unknown Rx Vitamin] Active Meds: Active Medications Hydrocodone Bitart/Acetaminophen ([place] 5/325) 2 each PO Q6H PRN PRN Reason: Pain, Moderate (4-6) Last Admin: 07/31/20 12:53 Dose: 2 each Documented by: Docusate Sodium (Colace) 100 mg PO BID [facility] Last Admin: 08/01/20 11:06 Dose: 100 mg Documented by: Ferrous Sulfate (Feosol) 325 mg PO BID [facility] Last Admin: 08/01/20 21:52 Dose: 325 mg Documented by: Ceftriaxone Sodium (Rocephin/Ns 1 Gm/50 Ml) 1 gm in 50 mls @ 100 mls/hr IV Q24H [facility]; Protocol Last Admin: 08/01/20 21:52 Dose: 100 mls/hr Documented by: Ibuprofen (Ibuprofen) 600 mg PO Q6H PRN PRN Reason: Pain, Mild (1-3) Last Admin: 08/01/20 18:19 Dose: 600 mg Documented by: Medroxyprogesterone Acetate (Depo-Provera (Contraception)) 150 mg IM ONCE ONE Stop: 08/02/20 14:43 Physical Examination - Physical Exam Narrative exam: Physical Exam: Constitutional: Alert, cooperative. No acute distress Head, Ears, Nose: Normocephalic, atraumatic. External ears, nose normal Eyes: Conjunctivae/corneas clear. No icterus. No ptosis. Neck: Supple, no meningeal signs Cardiovascular: S1, S2 normal. Respiratory: Good air entry, clear to auscultation bilaterally GI: Soft, non-tender; bowel sounds normal. No peritoneal signs. Musculoskeletal: No pedal edema, no cyanosis. Skin: No rash or abscess Hem/Lymphatic: No palpable cervical or supraclavicular nodes. No lymphangitis Psych: Mood ok. Affect normal Neurological: Awake, alert, oriented. No gross abnormality - Constitutional Vitals: Vital Signs Temp Pulse Resp BP Pulse Ox 98.0 F 66 18 118/57 97 08/02/20 09:01 08/02/20 09:01 08/02/20 09:01 08/02/20 09:01 08/02/20 09:01 Temperature -Last 24 Hours Temperature 98.0 F Temperature 98.6 F Temperature 97.9 F Results - Labs CBC & Chem 7: 07/31/20 19:56 07/30/20 20:35 - Imaging and Cardiology Chest x-ray: report reviewed, image reviewed (no pneumonia) Assessment and Plan Cultures: 07/30/2020 blood culture: GNR 07/30/2020 urine culture: In process A/P: 35-year-old female admitted to the hospital on 07/28/2020 for labor induction, underwent a vaginal delivery on 07/28/2020. She has a history of recurrent UTIs during her : #Sepsis, gram-negative omayra bacteremia: Source is probably urine. UA showed pyuria. Chest x-ray without any pneumonia. # status: breast feeding + #Multiple antibiotic allergies: Ciprofloxacin and Bactrim. Recs: Continue ceftriaxone for now given clinical improvement, D3 today Follow-up blood culture results to determine p.o. antibiotic therapy for di scharge (if susceptible, would do PO Omnicef 300 mg BID x 7 more days) Yaw Almazan MD, FACP [facility] ([facility] O: [phone] F: [phone]
[2020-08-02] MEDS ORDERED: medroxyPROGESTERone ACETATE 150 MG/ML SYRINGE IM ONE (14:42)
[2020-08-02] MEDS ORDERED: cefTRIAXone/NS 2 GM/100 ML 2 GM/100 ML BAG IV SCH (15:00)
[2020-08-02] MEDS: DOCUSATE SODIUM 100 MG CAP PO SCH ×2 (15:09→22:39)
[2020-08-02] MEDS: FERROUS SULFATE 325 MG TAB PO SCH ×2 (16:02→22:40)
[2020-08-02] MEDS: MEROPENEM/NS 1 GRAM/100 ML 1 GRAM/100 ML BAG IV SCH (16:03)
[2020-08-02] MEDS: HYDROcodone/ACETAMINOPHEN 5-325 MG TAB PO PRN (22:40)
[2020-08-03] MEDS: MEROPENEM/NS 1 GRAM/100 ML 1 GRAM/100 ML BAG IV SCH ×3 (00:33→17:00)
[2020-08-03] MEDS: DOCUSATE SODIUM 100 MG CAP PO SCH (08:34)
[2020-08-03] MEDS: FERROUS SULFATE 325 MG TAB PO SCH (08:34)
--- NOTE | 2020-08-03 12:20 | Progress Note ---
Assessment and Plan - Patient Problems (1) (normal spontaneous vaginal delivery) Current Visit: No Status: Acute Plan to address problem: Continue routine PP orders (2) Sepsis Current Visit: Yes Status: Acute Qualifiers: Sepsis type: Escherichia coli Sepsis acute organ dysfunction status: without acute organ dysfunction Qualified Code(s): A41.51 - Sepsis due to Escherichia coli [E. coli] Plan to address problem: Infectious disease consulted Continue IV Abts per ID orders Repeat blood cultures pending Subjective - Subjective Date of service: 08/03/20 Principal diagnosis: day 6 S/P / Sepsis Interval history: See admission H & P; OB delivery summary and PP progress notes Patient reports: appetite normal, voiding normally, pain well controlled, flatus, ambulating normally : doing well, bottle feeding (and ) Objective - Vital Signs Latest vital signs: Vital Signs Temp Pulse Resp BP BP Pulse Ox 08/03/20 09:00 98.3 F 62 18 115/60 08/02/20 19:30 99 F 75 18 122/71 08/02/20 16:48 98.1 F 71 18 127/81 98 Intake and Output 08/02/20 08/03/20 08/03/20 23:59 07:59 15:59 Intake Total 100 100 Balance 100 100 Intake: IV 100 100 MERREM/NS 1 GRAM/100 ML 1 100 100 gram In 100 ml @ 100 mls /hr IV Q8H [facility] Rx#: [id number] Other: # Voids Void 2 - Exam Breasts: Present: normal Cardiovascular: Present: Regular rate Lungs: Present: Normal air movement Abdomen: Present: soft Uterus: Present: firm Extremities: Present: edema Deep Tendon Reflex Grade: Normal +2
--- NOTE | 2020-08-03 13:05 | Progress Note ---
Assessment and Plan Cultures: 07/30/2020 blood culture: ESBL E.coli 07/30/2020 urine culture: no growth 08/02/2020 blood culture: in process A/P: 35-year-old female admitted to the hospital on 07/28/2020 for labor induction, underwent a vaginal delivery on 07/28/2020. She has a history of recurrent UTIs during her : #Sepsis, gram-negative omayra bacteremia: Source is probably urine. UA showed pyuria. Chest x-ray without any pneumonia. # status: breast feeding + #Multiple antibiotic allergies: Ciprofloxacin and Bactrim. Recs: continue IV Meropenem, D2 midline ordered CM orders placed for IV Meropenem 1 gm q8 hrs ending 08/08/2020 Yaw Almazan MD, FACP [facility] ([facility] O: [phone] F: [phone] Subjective Date of service: 08/03/20 Principal diagnosis: day 6 S/P / Sepsis Interval history: No fever. No complaints Objective - Exam Narrative Exam: Physical Exam: Constitutional: Alert, cooperative. No acute distress Head, Ears, Nose: Normocephalic, atraumatic. External ears, nose normal Eyes: Conjunctivae/corneas clear. No icterus. No ptosis. Neck: Supple, no meningeal signs Cardiovascular: S1, S2 normal. Respiratory: Good air entry, clear to auscultation bilaterally GI: Soft, non-tender; bowel sounds normal. No peritoneal signs. Musculoskeletal: No pedal edema, no cyanosis. Skin: No rash or abscess Hem/Lymphatic: No palpable cervical or supraclavicular nodes. No lymphangitis Psych: Mood ok. Affect normal Neurological: Awake, alert, oriented. No gross abnormality - Constitutional Vitals: Vital Signs Temp Pulse Resp BP Pulse Ox 98.3 F 62 18 115/60 98 08/03/20 09:00 08/03/20 09:00 08/03/20 09:00 08/03/20 09:00 08/02/20 16:48 Temperature -Last 24 Hours Temperature 98.3 F Temperature 99 F Temperature 98.1 F - Labs CBC & Chem 7: 07/31/20 19:56 07/30/20 20:35
--- NOTE | 2020-08-03 15:04 | Event Note ---
Date: 08/03/20 Given only needing IV Abx until 08/08 without insurance, case management reports that setting up outpatient [facility] home health would take multiple days and would recommend admission until 08/08/2020 instead of home health with potentially 1-2 days remaining of treatment. Will keep inpatient for IV Abx until 08/08/2020.
[2020-08-04] MEDS: FERROUS SULFATE 325 MG TAB PO SCH ×2 (01:00→09:53)
[2020-08-04] MEDS: DOCUSATE SODIUM 100 MG CAP PO SCH ×2 (01:00→09:53)
[2020-08-04] MEDS: MEROPENEM/NS 1 GRAM/100 ML 1 GRAM/100 ML BAG IV SCH ×3 (01:00→17:59)
[2020-08-04] MEDS: IBUPROFEN 600 MG TAB PO PRN (09:54)
--- NOTE | 2020-08-04 11:40 | Event Note ---
Date: 08/04/20 Noted plans from CM/SW for patient to remain in the hospital for IV abx. Patient to continue IV Meropenem 1 gm q8 hrs ending 08/08/2020. She can receive 1 dose of IV Ertapenem 1 gm in the morning of 08/08/2020 and can then be discharged. ID will sign off. Please call with questions.
[2020-08-05] MEDS: FERROUS SULFATE 325 MG TAB PO SCH ×2 (00:14→10:31)
[2020-08-05] MEDS: DOCUSATE SODIUM 100 MG CAP PO SCH (00:14)
[2020-08-05] MEDS: MEROPENEM/NS 1 GRAM/100 ML 1 GRAM/100 ML BAG IV SCH ×3 (00:30→16:50)
--- NOTE | 2020-08-05 22:16 | Progress Note ---
Assessment and Plan PPD # 8 A: S/P , VSS/Afebrile Sepsis/UTI p; Continue monitoring and abt Ferrous Sulfate bid Anticipate d/c home soon - Patient Problems (1) Anemia Current Visit: Yes Status: Acute Subjective - Subjective Date of service: 08/05/20 Principal diagnosis: day 6 S/P / Sepsis Patient reports: appetite normal, voiding normally, pain well controlled, ambulating normally : doing well, bottle feeding (baby at home) Objective - Vital Signs Latest vital signs: Vital Signs Temp Pulse Resp BP BP Pulse Ox 08/05/20 16:38 98.2 F 73 20 119/75 97 08/05/20 08:52 98.0 F 59 L 20 114/66 98 08/05/20 04:51 98.5 F 57 L 18 99/56 Intake and Output 08/05/20 08/05/20 08/05/20 06:59 14:59 22:59 Intake Total 580 820 120 Balance 580 820 120 Intake: IV 100 100 MERREM/NS 1 GRAM/100 ML 1 100 100 gram In 100 ml @ 100 mls /hr IV Q8H [facility] Rx#: [id number] Oral 480 720 120 Other: Total, Intake Amount 240 240 120 # Voids Void 1 1 1 - Exam Breasts: Present: deferred Abdomen: Present: normal appearance, soft, normal bowel sounds Vulva: both: normal Uterus: Present: normal, firm, fundal height below umbilicus Extremities: Present: normal
[2020-08-06] MEDS: MEROPENEM/NS 1 GRAM/100 ML 1 GRAM/100 ML BAG IV SCH ×3 (01:32→16:22)
[2020-08-06] MEDS: HYDROcodone/ACETAMINOPHEN 5-325 MG TAB PO PRN (01:36)
[2020-08-06] MEDS: FERROUS SULFATE 325 MG TAB PO SCH ×3 (01:38→22:21)
[2020-08-06] MEDS: DOCUSATE SODIUM 100 MG CAP PO SCH ×2 (10:00→22:21)
[2020-08-07] MEDS: MEROPENEM/NS 1 GRAM/100 ML 1 GRAM/100 ML BAG IV SCH ×3 (00:26→15:49)
[2020-08-07] MEDS: FERROUS SULFATE 325 MG TAB PO SCH ×2 (09:16→21:56)
[2020-08-07] MEDS: DOCUSATE SODIUM 100 MG CAP PO SCH ×2 (09:17→21:57)
--- NOTE | 2020-08-07 11:16 | Progress Note ---
Assessment and Plan A: day 10 S/P . Anemia, on oral iron supplementation. Sepsis: ESBL E. Coli; being followed by ID. P: Timing of discharge to be determined by ID. Continue oral iron supplementation. Subjective - Subjective Date of service: 08/07/20 Principal diagnosis: day 10 S/P / Sepsis Interval history: Being followed by ID for ESBL E.Coli sepsis. Feeling much better. Repeat blood cultures negative. Patient reports: appetite normal, voiding normally, pain well controlled, flatus, ambulating normally, no dizzy ambulation, no nauseated : doing well Objective - Vital Signs Latest vital signs: Vital Signs Temp Pulse Resp BP Pulse Ox 08/07/20 09:05 97.6 F 61 18 120/66 96 08/07/20 01:19 98.7 F 61 18 106/60 97 08/06/20 16:39 98.0 F 71 18 120/77 97 Intake and Output 08/06/20 08/07/20 08/07/20 23:59 07:59 15:59 Intake Total 520 580 Balance 520 580 Intake: IV 100 100 MERREM/NS 1 GRAM/100 ML 1 100 100 gram In 100 ml @ 100 mls /hr IV Q8H [facility] Rx#: [id number] Intake, Free Water 420 480 Other: # Voids Void 2 2 - Exam Cardiovascular: Present: Regular rate, No murmurs Lungs: Present: Clear to auscultation Abdomen: Present: normal appearance, soft. Absent: distention, tenderness, guarding, rigidity Uterus: Present: normal, firm, fundal height below umbilicus. Absent: bogginess, tenderness Extremities: Present: normal
[2020-08-08] MEDS: MEROPENEM/NS 1 GRAM/100 ML 1 GRAM/100 ML BAG IV SCH ×2 (00:27→08:30)
[2020-08-08] MEDS: DOCUSATE SODIUM 100 MG CAP PO SCH (10:00)
--- NOTE | 2020-08-08 11:34 | Progress Note ---
Assessment and Plan A: day 11 S/P . Sepsis (ESBL E. Coli). Repeat blood cultures negative. Anemia. P: Complete antibiotics as ordered by ID. Anticipate discharge home tomorrow. Continue oral iron supplementation. Subjective - Subjective Date of service: 08/08/20 Principal diagnosis: day 11 S/P / Sepsis Interval history: Being followed by ID for ESBL E.Coli sepsis. Feeling much better. Repeat blood cultures negative. Plan for discharge tomorrow. Patient reports: appetite normal, voiding normally, pain well controlled, flatus, bowel movement, ambulating normally, no dizzy ambulation, no nauseated Objective - Vital Signs Latest vital signs: Vital Signs Temp Pulse Resp BP BP Pulse Ox 08/08/20 08:26 97.7 F 52 L 18 99/43 96 08/08/20 00:08 98.0 F 58 L 16 98 08/08/20 00:05 98 F 58 L 16 110/72 98 08/07/20 17:00 98 F 55 L 18 114/63 96 Intake and Output 08/07/20 08/08/20 08/08/20 23:59 07:59 15:59 Intake Total 590 520 Balance 590 520 Intake: IV 110 Left Upper arm 10 MERREM/NS 1 GRAM/100 ML 1 100 gram In 100 ml @ 100 mls /hr IV Q8H [facility] Rx#: [id number] Intake, Free Water 480 520 Other: # Voids Void 2 3 - Exam Cardiovascular: Present: Regular rate, No murmurs Lungs: Present: Clear to auscultation Abdomen: Present: normal appearance, soft. Absent: distention, tenderness, guarding, rigidity Uterus: Present: normal, firm, fundal height below umbilicus. Absent: bogginess, tenderness Extremities: Present: normal. Absent: tenderness, edema
--- NOTE | 2020-08-08 12:23 | Event Note ---
Date: 08/08/20 Ordered IV ertapenem 1g ONCE, ok for DC after being given. Petros Hurley MD [facility] O: [phone] F: [phone]
[2020-08-08] MEDS ORDERED: ERTAPENEM 1 GM in SODIUM CHLORIDE 0.9% 50 ML IV ONE (13:00)
[2020-08-08] MEDS: FERROUS SULFATE 325 MG TAB PO SCH (14:36)
--- NOTE | 2020-08-08 15:44 | Discharge Summary ---
Providers - Providers Date of Admission: 07/28/20 15:06 Date of discharge: 08/08/20 Attending physician: MALIK VILLANUEVA JR, MD 08/01/20 13:09 Consult to Physician [CONS] Urgent Comment: Consulting Provider: JOHN DEL REAL Physician Instructions: Reason For Exam: Sepsis 08/03/20 10:49 Consult to Case Management [CONS] Stat Services Needed at Discharge: Home Health Services Notified:: Samara Phone number called:: [phone] Was contact made?: Yes If yes, spoke with:: Samara Time called:: 10:45 Comment:: needs to set up home health for IV meropenem for ESBL bateremia 08/03/20 13:06 Consult to Case Management [CONS] Routine Services Needed at Discharge: Other Notified:: no Comment:: IV abx Additional Physician Instructions: [facility] O: [phone] F: [phone] OUTPATIENT PARENTERAL ANTIBIOTIC THERAPY (OPAT) ORDERS Diagnoses: ESBL E.coli bacteremia Antimicrobial administration: IV Meropenem 1 gm q8 hrs ending 08/08/2020 - Remove mid line after last dose. Lines: Maintain IV access with weekly dressing changes and locks per protocol. Lab monitoring: not needed given short duration of IV abx Please fax results to [phone] and call [phone] for critical lab results or concerns. Yaw Almazan MD [facility] Consult to PICC Line RN [CONS] Routine Reason For Exam: IV abx Type Line:: Midline Primary care physician: MALIK VILLANUEVA JR, MD Hospitalization Reason for admission: induction of labor Delivery: Episiotomy: none Laceration: none complications: UTI, other (sepsis) Discharge diagnosis: IUP at term delivered baby: female Pertinent studies: Labs, x-ray Hospital course: Sepsis and UTI (seen, treated and cleared for discharge by ID). Condition at discharge: Good Disposition: DC-01 TO HOME OR SELFCARE - Discharge Diagnoses (1) Term delivered Status: Acute Plan - Discharge Medications Prescriptions: Ibuprofen [Motrin 600 MG tab] 600 mg PO Q6HR #30 tablet - Provider Discharge Summary Activity: routine, no sex for 6 weeks, no heavy lifting 4 weeks, no strenuous exercise Diet: routine Instructions: routine Additional instructions: Continue taking your iron supplements at home. Follow up at [facility] within the week. Keep your scheduled follow up with urology. Call your doctor immediately for: * Fever > 100.5 * Heavy vaginal bleeding ( >1 pad per hour) * Severe persistent headache * Shortness of breath * Reddened, hot, painful area to leg or breast - Follow up plan Follow up: MALIK VILLANUEVA JR, MD [Primary Care Provider] - 7 Days
[2020-08-08 17:25] VITALS: BP 121/75
== END 2020-08-08 17:38 | disposition home or self-care (01) | DRG 805 ==
LOC: LD 15:06 → OB 07-29 00:11 → UNDODISIN 07-29 18:00
PROVIDERS: ADMIT Obstetrics & Gynecology; ATTEND Obstetrics & Gynecology
PROC: 10E0XZZ Delivery of Products of Conception, External Approach (ICD-10-PCS; principal; 2020-07-28)
PROC: 10907ZC Drainage of Amniotic Fluid, Therapeutic from Products of Conception, Via Natural or Artificial Opening (ICD-10-PCS; 2020-07-28)
PROC: 3E033VJ Introduction of Other Hormone into Peripheral Vein, Percutaneous Approach (ICD-10-PCS; 2020-07-28)
DX: O75.3 Other infection during labor (principal); O85 Puerperal sepsis; Z37.0 Single live birth; O98.32 Other infections with a predominantly sexual mode of transmission complicating childbirth; A60.09 Herpesviral infection of other urogenital tract; F32.9 Major depressive disorder, single episode, unspecified; Z20.828 Contact with and (suspected) exposure to other viral communicable diseases; O99.02 Anemia complicating childbirth; B96.20 Unspecified Escherichia coli [E. coli] as the cause of diseases classified elsewhere; Z3A.41 41 weeks gestation of pregnancy; Z80.42 Family history of malignant neoplasm of prostate; Z82.49 Family history of ischemic heart disease and other diseases of the circulatory system; Z88.1 Allergy status to other antibiotic agents; Z88.2 Allergy status to sulfonamides
CPT/HCPCS: 36415; 71045; 80053; 80170; 81001; 85014; 85018; 85025; 85027; 86592; 86850; 86900; 86901; 87040; 87076; 87086; 87186; 87400; G0378; J0290; J0696; J1050; J1335; J1580; J2185; J2590; J3010; J7030; J7040; J7050; J7120; U0003

== ENCOUNTER 2020-12-21 13:09 | Outpatient (CLI) | payer MEDICAID, MEDICARE ==
--- NOTE | 2020-12-21 14:55 | Cat Scan Report ---
CT ABDOMEN AND PELVIS WITHOUT IV CONTRAST INDICATION: RENAL CALCULUS. COMPARISON: None available. TECHNIQUE: All CT scans at this facility use dose modulation, automated exposure control, iterative reconstructi on or weight based dosing, when appropriate, to reduce radiation dose to as low as reasonably achieva ble. FINDINGS: Lung Bases: No significant abnormality. Skeletal System: No acute abnormality. ABDOMEN: Liver: No significant abnormality. Gallbladder: No significant abnormality. Bile Ducts: No significant abnormality. Pancreas: No significant abnormality. Spleen: No significant abnormality. Adrenals: No significant abnormality. Right Kidney: There are numerous punctate nonobstructing calyceal stones. Left Kidney: There are numerous punctate nonobstructing calyceal stones. Upper GI tract: No significant abnormality. Lymph Nodes: No significant adenopathy. Aorta: No significant abnormality. Additional Findings: No significant abnormality. PELVIS: Colon: No acute abnormality. Diverticulosis is noted. Urinary Bladder and Distal Ureters: No significant abnormality. Appendix: No significant abnormality. Lymph Nodes: No significant adenopathy. Additional Findings: None. IMPRESSION: 1. Bilateral nephrolithiasis. No ureteral stones or hydronephrosis. 2. Incidental findings, as above. Signer Name: Bandar Hall MD Signed: 12/21/2020 2:51 PM Workstation Name: [id number]
== END 2020-12-21 13:10 | disposition home or self-care (01) ==
LOC: CT 13:09
PROVIDERS: ATTEND Urology
DX: N20.0 Calculus of kidney (principal)
CPT/HCPCS: 74176